=== PATIENT | male | born 1960 | race Caucasian/White ===

== ENCOUNTER 2021-10-27 00:26 | Day surgery (SDC) | payer OTHER, SELFPAY ==
[2021-10-10 13:41] VITALS: BMI 24.4
[2021-10-27 08:18] VITALS: BMI 24.6
[2021-10-27 08:19] VITALS: BP 110/68; PULSE 80; RESP 18; TEMP 36.1; O2SAT 100
[2021-10-27] MEDS: LACTATED RINGERS 1,000 ML 150 ML IV CONT (08:28)
--- NOTE | 2021-10-27 08:54 | WPDANESEPPF ---
Anes - Initial Pre Proc Eval Procedure: Operation Date: 10/27/21 09:30 Proposed Procedures p Colonoscopy - Cody Riley MD Date/Time: 10/27/21 08:54 Surgeon: Cody Riley MD Pre Op Diagnosis: Rectal bleeding Patient Data Age: 61 Gender: M Height: 1.8 m Weight: 80.2 kg Last Vital Signs Temp 97 F L 10/27/21 08:19 Pulse 80 10/27/21 08:19 Resp 18 10/27/21 08:19 BP 110/68 10/27/21 08:19 Pulse Ox 100 10/27/21 08:19 Allergies Allergy/AdvReac Type Severity Reaction Status Date / Time No Known Allergies Allergy Unverified 01/16/19 10:43 Patient hx anesthesia problems: none Family hx anesthesia problems: none Results Review: All pre-operative results and documents have been reviewed as part of the pre-operative evaluation. [facility] Social History Social History Smoking status: Never smoker Alcohol intake: current Drinks per week: 6 Substance use: never Substance use type: does not use Living arrangements: with family Spiritual care concerns: No Anes - Eval Final PreProcedure Day of Procedure 10/27/21 08:54 Patient weight: normal Heart: regular rate and rhythm Airway: Mallampati scale class II Neurological: alert and oriented Last oral intake: >/= 8 hours ASA classification: III Emergent: no Anesthetic plan: proceed Anesthesia type and monitoring: general GIVS and standard monitoring Results Review: All pre-operative results and documents have been reviewed as part of the pre-operative evaluation. Informed Consent: The patient's anesthetic plan and its attendant risks and benefits were discussed with the patient/family/POA. Questions were solicited and answers provided to the satisfaction of the patient/family/POA.
--- NOTE | 2021-10-27 08:58 | P.CONGI_ITS ---
Assessment and Plan Assessment and plan (1) Rectal bleeding: Code(s): K62.5 - Hemorrhage of anus and rectum Status: Acute Assessment and Plan: Patient complains of rectal bleeding. Plan is for high-fiber diet. Further recommendations will be given after a colonoscopy to assess more thoroughly. GI Consult Note Consult date/time: 10/27/21 08:58 HPI: Hari Sinclair is a 61 year old male Presents for colonoscopy. Patient reports bright red blood per rectum that is occurred on 1 or 2 episodes over last several months. He denies abdominal pain. His bowel habits tend to be regular. He has had no rectal pain. Family history is noncontributory. Patient reports having had a prior colonoscopy more than 10 years ago. Family history is noncontributory. Review of Systems Review of Systems: All systems reviewed & are unremarkable except as noted in HPI and below PMFSH Social History Social History Smoking status: Never smoker Alcohol intake: current Drinks per week: 6 Substance use: never Substance use type: does not use Living arrangements: with family Spiritual care concerns: No Meds Home Medications and Allergies Allergies Allergy/AdvReac Type Severity Reaction Status Date / Time No Known Allergies Allergy Unverified 01/16/19 10:43 Vital Signs Vital Signs - 24 hr 10/27/21 08:19 Temperature 97 F L Pulse Rate 80 Respiratory Rate 18 Blood Pressure 110/68 Pulse Oximetry 100 Exam Narrative: Physical exam reveals patient to be alert. Vital signs stable. HEENT exam is unremarkable. Patient is anicteric. Lungs are clear to auscultation and percussion. Heart is without murmur or extra sounds. Abdo chasity exam bowel sounds are present soft nontender with no organomegaly. Digital external rectal exam is normal.
[2021-10-27 10:08] VITALS: BP 94/63; PULSE 72; RESP 15; O2SAT 98
[2021-10-27 10:18] VITALS: BP 97/70; PULSE 81; RESP 19; O2SAT 100
[2021-10-27 10:28] VITALS: BP 100/73; PULSE 66; RESP 17; O2SAT 100
== END 2021-10-27 10:32 | disposition home or self-care (01) ==
PROVIDERS: PCP Internal Medicine; Visit Provider Internal Medicine Gastroenterology
PROC: 0DJD8ZZ Inspection of Lower Intestinal Tract, Via Natural or Artificial Opening Endoscopic (ICD-10-PCS; CPT 45378; principal; 2021-10-27 09:30)
DX: Z12.11 Encounter for screening for malignant neoplasm of colon (principal); D12.2 Benign neoplasm of ascending colon; K62.5 Hemorrhage of anus and rectum
CPT/HCPCS: 45385; 88305; J2704; J7120

== ENCOUNTER 2022-08-24 20:06 | Emergency (ER) | payer OTHER, SELFPAY ==
--- NOTE | ~2022-08-24 | CT_ITS ---
EXAMINATION: CTA neck DATE: 08/24/2022 21:09 INDICATION: Anterior neck injury, anterior neck pain TECHNIQUE: Computed tomography (CT) of the neck was performed with 100 mL Omnipaque-350 intravenous c ontrast. Automated exposure control and iterative reconstruction technique were employed. Exam dose: 652.75 mGy-cm total exam DLP. COMPARISON: None FINDINGS: No thoracic dissection of the included portion of the ascending and descending thoracic aor ta and aortic arch. No evidence of pulmonary embolism of the included lung hess. No hilar or medias tinal mass lesion or lymphadenopathy. No atherosclerotic significant stricture or obstruction or dissection of the great vessels or common, internal or external carotid arteries. Intracranial cerebral artery circulation is intact without ev idence of stricture, occlusion or apparent aneurysm. There is prominent tortuosity of both cervical i nternal carotid arteries. No cervical mass lesion or lymphadenopathy. Normal size and homogeneous enhancement of the thyroid gland. The parotid and submandibular glands ar e symmetric and unremarkable. The lung apices and included upper lung hess are clear. There are calcified left hilar and mediasti nal nodes, consistent with old granulomatous disease. Limited right mastoid air cell effusion. The mastoid air cells and paranasal sinuses are otherwise no rmally developed and aerated. Moderately severe to severe degenerative disc disease throughout the cervical spine and prominent deg enerative change of the apophyseal joints as well as uncovertebral joint spurring in the mid and lowe r cervical spine. IMPRESSION: No significant stricture, occlusion, atherosclerotic disease, dissection, aneurysm or oc clusion of the aortic arch, great vessels or cervical or intracranial carotid circulations No cervical mass lesion or lymphadenopathy Cervical spondylosis Reviewed, dictated and finalized at [facility]. Reviewed, dictated and finalized at [facility]. IMPRESSION: No significant stricture, occlusion, atherosclerotic disease, diss ection, aneurysm or occlusion of the aortic arch, great vessels or cervical or intracranial carotid circulations No cervical mass lesion or lymphadenopathy Cervical spondylosis
[2022-08-24 19:59] VITALS: O2SAT 98
[2022-08-24 20:04] VITALS: BP 106/82; PULSE 72; RESP 12; O2SAT 98
[2022-08-24 20:08] VITALS: BP 106/82; PULSE 69; RESP 14; TEMP 37; O2SAT 98
--- NOTE | 2022-08-24 20:11 | ED.GENADULT ---
HPI - General Adult General Chief complaint: Neck Pain/Injury Stated complaint: FALL WITH NECK PAIN History of Present Illness HPI narrative: 62-year-old male presenting to the emergency department for evaluation of anterior neck pain. 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 Patient states the antibiotic/direct just inferior of the hyoid but did track further and ultimately struck his chin. Patient denies any loss of consciousness. Patient denies any other pain or injury. Patient reports he does still have some pain with swallowing. Patient denies any previous surgical history of his neck. Related Data Allergies Allergy/AdvReac Type Severity Reaction Status Date / Time No Known Allergies Allergy Unverified 01/16/19 10:43 Review of Systems Review of Systems: CONSTITUTIONAL: Denies fever, chills, or sweats. EYES: Denies visual changes, redness, or discharge. ENT: Denies rhinorrhea, congestion, sore throat, or otalgia. CARDIOVASCULAR: Denies chest pain, palpitations, or edema. RESPIRATORY: Denies cough or dyspnea. GASTROINTESTINAL: Denies abdominal pain, nausea, vomiting, or diarrhea. GENITOURINARY: Denies dysuria or hematuria. SKIN: Denies rash or itching. MUSCULOSKELETAL: No posterior neck pain., See HPI NEUROLOGIC: Denies headache, numbness, or weakness. PMFSH Social History Social History Smoking status: Never smoker Alcohol intake: current Drinks per week: 6 Substance use: never Substance use type: does not use Spiritual care concerns: No Exam Narrative: APPEARANCE: Well appearing, no pain, no distress, well-nourished. HEAD: normocephalic, atraumatic. Neck: Anterior neck tenderness to palpation, no ecchymosis, no stridor. EYES: PERRLA/EOMI, conjunctivae clear. NOSE: Normal no drainage EARS:TMS clear with good light reflex. THROAT: Pharynx clear, no exudate. NECK: Supple. No adenopathy, no masses. RESPIRATORY: Airway patent, respirations nonlabored. Clear to auscultation bilaterally, no rales, rhonchi, wheezing. CARDIOVASCULAR: Regular rate and rhythm without murmurs rubs or gallops. ABDOMINAL: Soft, nontender, nondistended, normal bowel sounds MUSCULOSKELETAL: Moves all extremities. Strength/ROM intact, No edema, No calf tenderness. NEURO: Alert. Cranial nerves II through XII intact. Grossly intact SKIN: Warm, dry. Normal Color Course Course Emergency Course: CT scan showed no acute abnormality. Patient was obtained the results of his imaging. Patient was encouraged of close follow-up with his primary care physician was also educated on reasons to return to the emergency room Vital Signs Vital signs: Vital Signs Pulse Oximetry 98 08/24/22 19:59 Oxygen Delivery Room Air 08/24/22 19:59 Temperature 98.6 F 08/24/22 20:08 Pulse Rate 66 08/24/22 21:45 Respiratory Rate 14 08/24/22 21:45 Blood Pressure 108/77 08/24/22 21:45 Pulse Oximetry 98 08/24/22 21:45 Oxygen Delivery Room Air 08/24/22 20:08 Medical Decision Making Vital Signs Vital Signs: Vital Signs Pulse Oximetry 98 08/24/22 19:59 Oxygen Delivery Room Air 08/24/22 19:59 Temperature 98.6 F 08/24/22 20:08 Pulse Rate 66 08/24/22 21:45 Respiratory Rate 14 08/24/22 21:45 Blood Pressure 108/77 08/24/22 21:45 Pulse Oximetry 98 08/24/22 21:45 Oxygen Delivery Room Air 08/24/22 20:08 Lab Data Lab results reviewed: Yes I reviewed the patient's lab results. Result diagrams: 08/24/22 20:24 08/24/22 20:24 Labs: Lab Results 08/24/22 08/24/22 Range/Units 20:24 20:24 WBC 6.6 (4.5-10.0) K/mm3 RBC 4.24 L (4.6-6.20) M/mm3 Hgb 14.5 (14.0-18.0) g/dL Hct 42.2 (42.0-52.0) % MCV 99.5 (80-100) fl MCH 34.2 H (26-34) pg MCHC 34.4 (32-36) g/dl RDW 12.5 (11.5-14.5) % Plt Count 167 (150-375) k/mm3 MPV 9.
[2022-08-24 20:36] LABS: Basophils Percent Auto 0.6 % (0.2-1.2); Eosinophils Absolute Auto 0.6 K/mm3 (0-0.3); Eosinophils Percent Auto 8.8 % (0-4.4); Hematocrit 42.2 % (42.0-52.0); Hemoglobin 14.5 g/dL (14.0-18.0); Immature Granulocyte Absolute 0.02 K/mm3 (0.00-0.031); Immature Granulocyte Percent A 0.3 % (0-0.5); Lymphocytes Absolute Auto 1.69 K/mm3 (0.9-3.2); Lymphocytes Percent Auto 25.6 % (18.3-44.2); Mean Corpuscular HGB Conc 34.4 g/dl (32-36); Mean Corpuscular Hemoglobin 34.2 pg (26-34); Mean Corpuscular Volume 99.5 fl (80-100); Mean Platelet Volume 9.6 fl (7.4-10.4); Monocytes Absolute Auto 0.7 K/mm3 (0.1-0.6); Neutrophils Absolute Auto 3.6 K/mm3 (1.3-6.7); Neutrophils Percent Auto 53.7 % (45.5-73.1); Platelet Count Result 167 k/mm3 (150-375); Red Blood Count 4.24 M/mm3 (4.6-6.20); Red Cell Distribution Width 12.5 % (11.5-14.5); White Blood Count 6.6 K/mm3 (4.5-10.0)
[2022-08-24 20:46] LABS: Alanine Aminotransferase 48 U/L (6-50); Albumin Level 4.6 g/dL (3.5-5.1); Alkaline Phosphatase 40 U/L (38-126); Anion Gap 8 mmol/L (8-16); Aspartate Amino Transferase 43 U/L (17-59); Bilirubin,Total 0.7 mg/dL (0.2-1.3); Blood Urea Nitrogen 14 mg/dL (9-20); Calcium 9.3 mg/dL (8.4-10.2); Carbon Dioxide 26 mmol/L (22-30); Chloride 100 mmol/L (98-107); Estimated CRCL calculation 81 ml/min; Estimated Glomerular Filt Rate > 60; Glucose 90 mg/dL (65-110); Sodium 134 mmol/L (137-145)
[2022-08-24 21:08] VITALS: BP 107/73; PULSE 66; RESP 12; O2SAT 98
[2022-08-24 21:45] VITALS: BP 108/77; PULSE 66; RESP 14; O2SAT 98
== END 2022-08-24 22:08 | disposition home or self-care (01) ==
PROVIDERS: Emergency Provider Emergency Medicine
DX: S19.9XXA Unspecified injury of neck, initial encounter (principal); M47.812 Spondylosis without myelopathy or radiculopathy, cervical region; W01.198A Fall on same level from slipping, tripping and stumbling with subsequent striking against other object, initial encounter
CPT/HCPCS: 36415; 70498; 80053; 85025; 99284; Q9967

== ENCOUNTER 2024-03-11 10:11 | Outpatient (CLI) | payer OTHER, SELFPAY ==
--- NOTE | 2024-03-11 11:00 | NEURO_ITS ---
Impression: # Non-diabetic complains of right lower extremity numbness. # Early neuropathy. # Needle/EMG exam with neurogenic changes in EDB. # Clinical correlation recommended. Nerve Conduction Studies Anti Sensory Summary Table Stim Site NR Peak (ms) P-T Amp (?V) Site1 Site2 Delta-P (ms) Dist (cm) Bogdan (m/s) Right Saphenous Anti Sensory (Ant Med Mall) 14cm 3.1 11.9 14cm Ant Med Mall 3.1 0.0 Right Sup Fibular Anti Sensory (Ant Lat Mall) 14 cm 4.0 6.0 14 cm Ant Lat Mall 4.0 16.0 40 Right Sural Anti Sensory (Lat Mall) Calf 3.5 14.5 Calf Lat Mall 3.5 16.0 46 Motor Summary Table Stim Site NR Onset (ms) O-P Amp (mV) Site1 Site2 Delta-0 (ms) Dist (cm) Bogdan (m/s) Right Peroneal Motor (Vastus Med) Ankle 4.9 2.8 Popit Ankle 9.9 42.0 42 Popit 14.8 1.5 Right Tibial Motor (Abd Aquino Brev) Ankle 4.5 3.0 Knee Ankle 10.8 45.0 42 Knee 15.3 1.7 F Wave Studies NR F-Lat (ms) L-R F-Lat (ms) Right Peroneal (Mrkrs) (EDB) 56.88 Right Tibial (Mrkrs) (Abd Hallucis) 56.65 EMG Side Muscle Nerve Root Ins Act Fibs Amp Dur Recrt Comment Right AntTibialis Dp Br Fibular L4-5 Nml Nml Nml Nml Nml Right Gastroc Tibial S1-2 Nml Nml Nml Nml Nml Right Fibularis Long Sup Br Fibular L5-S1 Nml Nml Nml Nml Nml Right Flex Dig Long Tibial L5-S2 Nml Nml Nml Nml Nml Right Ext Dig Brev Dp Br Fibular L5, S1 Nml Nml Incr >12ms +2 Right QuadratusFem QuadFemoris L4-5, S1 Nml Nml Nml Nml Nml MTDD
== END 2024-03-11 10:12 | disposition home or self-care (01) ==
LOC: ANHNEURO 10:13
PROVIDERS: PCP Physician Assistant Medical; Visit Provider Physician Assistant Medical
DX: R20.0 Anesthesia of skin (principal)
CPT/HCPCS: 95886; 95909

== ENCOUNTER 2025-08-20 02:13 | Day surgery (SDC) | payer OTHER, SELFPAY ==
--- NOTE | 2025-08-10 13:02 | SUR.PREOP ---
Addendum entered by Mirna Garces RN 08/19/25 16:50: Called patient d/t the surgery date changing to 08/20/25 at 1300. Pt denies any changes with his medication or health history. Updated instructions on NPO status to [place] to guidelines. Pt denies having any further concerns at this time.-gladys Original Note: [facility] has started construction of its new state of the art ER which will open Spring 2026. With this, we anticipate parking may be a challenge for some our surgical patients and families. Parking spaces are limited but are available for all Surgical, obstetrics, and ER patients sharing this lot. If you arrive and find you are having a hard time finding a parking space, please note that we understand the challenges, please drive around the hospital and park near Hospital Entrance 1. When you enter this entrance, you can ask a volunteer to direct or take you back to the surgical waiting area to check in. We appreciate everyone?s understanding of these expected challenges while we build for your future. Report to the Outpatient Waiting Room, entrance under the green pavilion located off [address], at time __8AM___ on date _08/19/25__. Planned Procedure Time: _10am__.? Time changes happen often and if your time is changed the preop area will call you the afternoon before. - You and your visitor will be asked to self-screen and do not enter if you have any COVID symptoms. Please call surgeon if you need to reschedule. - A mask is optional within the hospital at this time. Patients may have clear liquids (water, carbonated beverages, clear teas, apple juice) until 3 hours prior to surgery with a maximum of 20 ounces. - No food from midnight until time of surgery and no smoking, or chewing tobacco (or any form of nicotine). No chewing gum, candy or mints. Take only the following medications with a SIP of water on the morning of surgery: __carvedilol and (nitroglycerine if needed)__ DO NOT STOP ANY OF YOUR OTHER PRESCRIPTION MEDICATIONS PRIOR TO SURGERY EXCEPT THE FOLLOWING Hold all vitamins and supplements for 3 days per anesthesiologist. Medications to discontinue per physician _Pt has an apt 08/11/25 and was directed to speak to the provider regarding the aspirin with history of cardiac stents and naproxen before surgery. Date to take last dose of vitamins__08/15/25_ Please no make-up, nail montserratian, hairspray, perfume, deodorant, or body powder the day of surgery.? No jewelry (including any body piercings) or valuables the day of surgery, leave them at home.? Please take a shower or bath the night before, or the morning of, surgery with an antibacterial soap.? Wear comfortable, loose fitting clothing.? - Jewelry must be removed prior to entering the operating room.? Rings and piercings that are not removed may be cut off. - The hospital will not accept responsibility for valuables.? - Please leave all valuables, including medications, at home the day of surgery. If you are going home after surgery, a licensed milk pickup driver must drive you home.? - NO public transportation without another adult if you receive anesthesia. - We recommend that an adult stay with you for 24 hours following discharge. - We also recommend that you do not drive, make important decision, drink alcoholic beverages, or take any drugs that were not prescribed by your health care provider for at least 24 hours after your discharge time. Follow any additional instructions given to you from your surgeon. Telephone instructions given to __Lewis___and asked if any additional questions and then verbalized understanding. Patient advised to call surgeon office or pre surgery nurse liaison [phone] if any additional questions.
[2025-08-10 13:10] VITALS: BMI 24.0
--- NOTE | 2025-08-13 07:18 | PM.IMHP ---
H&P: HPI History of Present Illness Date/Time: 08/13/25 07:18 Chief Complaint: Patient has knee and knee pain right. He has mechanical catching and locking and has failed conservative treatment. He continues to be painful when he twists or turns the knee catches. He would like to consider surgical intervention. Review of Systems Musculoskeletal: Musculoskeletal: Reports arthralgias, Reports joint swelling and Reports stiffness Neurologic: Reports abnormal gait [facility] Past Medical History Medical History Prostate cancer History of [place] (myocardial infarction) CAD (coronary artery disease) [place] (seborrheic keratosis) Platt angioma [place] (actinic keratosis) Surgical History Surgical History History of right knee surgery History of heart surgery History of prostatectomy Family History Family History Mother Pancreatic cancer Hypertension Father Hypertension Heart disease Sibling Cerebrovascular accident Hypertension Social History Social History (Updated 07/21/25 @ 10:38 by Vanesa Car CMA) Smoking status: Never smoker Alcohol intake: current Drinks per week: 5 Substance use: never Substance use type: does not use Do You Feel Safe in your Home?: Yes Lack of Transportation: No Lack of Food: Never True Current Housing: I Have Housing Concerned About Future Housing: No Difficulty Paying Gas/Electric Bills: No Difficulty Paying for Meds: No Currently Unemployed: No Education: High School Diploma/GED Difficulty w/ Childcare or Family Care: No Living arrangements: with family Occupation/Education: occupation Additional occupation/education comments: [employer] Gender identity (if verbalized by the patient): Male Spiritual care concerns: No Meds Home Medications and Allergies Home Medications ?Medication ?Instructions ?Recorded ?Confirmed ?Type aspirin 81 mg tablet,delayed 81 mg PO DAILY 06/20/23 08/10/25 History release (Adult Aspirin Regimen) carvedilol 12.5 mg tablet 12.5 mg PO Q12H 06/20/23 07/21/25 History ezetimibe 10 mg tablet 10 mg PO DAILY #90 tabs 06/20/23 08/10/25 Rx nitroglycerin 0.4 mg sublingual 0.4 mg sublingual Q5M PRN chest 04/01/24 08/10/25 Rx tablet pain #30 tabs naproxen 500 mg tablet (Naprosyn) 500 mg PO BID 08/10/25 08/10/25 History rosuvastatin 40 mg tablet 40 mg PO HS 08/10/25 08/10/25 History tadalafil 5 mg tablet 5 mg PO DAILY PRN sexual activity 08/10/25 08/10/25 History vitamin B complex 1 tablet PO DAILY 08/10/25 08/10/25 History cholecalciferol (vitamin D3) 25 50 mcg PO DAILY 08/11/25 History mcg (1,000 unit) tablet lisinopril 10 mg tablet 5 mg PO BID 08/11/25 History Allergies Allergy/AdvReac Type Severity Reaction Status Date / Time No Known Allergies Allergy Verified 08/11/25 15:34 Exam Narrative: Patient has tenderness in and pain right knee both medially and laterally. He has catching and locking mechanical type symptoms. He walks with a limp. Neurologically he is intact. He has pain with any manipulation of his knee. Eyes: General: appearance normal, both eyes and all related structures Neck: Neck: supple Resp: Effort & Inspection: normal respiratory effort Cardio: Rate: regular rate Rhythm: regular rhythm Knee X-Ray 06/20/23 Shoulder X-Ray 06/20/23 Lumbar Spine X-Ray 02/01/24 Assessment and Plan Assessment and plan (1) Acute lateral meniscus tear of right knee: Code(s): S83.281A - Other tear of lateral meniscus, current injury, right knee, initial encounter Status: Acute Assessment and Plan: Patient has medial and lateral tears meniscal tears of the right knee. He has failed conservative treatment like to consider surgical intervention. I discussed the risks, benefits, limitations, and alternatives with the patient in detail he understands and agrees would like to proceed. Will proceed per his request with arthroscopy right knee partial medial and lateral meniscectomies proceed as indicated. (2) Acute medial meniscus tear of right knee: Code(s): S83.241A - Other tear of medial meniscus, current injury, right knee, initial encounter Status: Acute
--- OUTSIDE RECORDS SUMMARY | 2025-08-19 02:03 | XMS_ITS | Encounter Summary ---
Author Organization [facility] Address [address] [place] [id number] Care Team Providers Care Feather Maker Name Role Phone Luis Beck MD Primary Care Provider [phone] Silvia Gardner MD Unavailable [phone] Eugenie Wolfe Primary Care Provider [phone] Encounter Details Date Type Department Care Team (Late st Contact Info) Description 03/29/2019 Abstract [facility] CONVERSION [address] [place] [address] , Generic ConversionMD Social History Tobacco Use Types Packs/Day Years Used Date Smoking Tobacco: Never Smokeless Tobacco: Never Alcohol Use Standard Drinks/Week Comments Yes 0 (1 standard drink = 0.6 oz pur e alcohol) Occasionally Sex and Gender Information Value Date Recorded Sex Assigned at Male 11/26/2024 11:56 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, [address] [place], [place] [id number] Silvia Gardner MD [facility]. [address] [place], [place] [id number] documented as of this encounter Visit Diagnoses Not on filedocumented in this encounter Additional Health Concerns Infection Onset Date Last Indicated Resolved Time COVID-19 Rule Out 10/11/2023 10/11/2023 10/11/2023 1:58 PM RENTAL SALES AGENT COVID-19 Rule Out 10/11/2023 10/11/2023 10/11/2023 4:51 PM RENTAL SALES AGENT documented as of this encounter Care Teams Feather Maker Relationship Specialty Start Date End Date Luis Beck MD PCP - General INTERNAL MEDICINE 03/22/16 10/10/23 Eugenie Wolfe PA [address] [place] [id number] PCP - General PHYSICIAN REHABILITATION SERVICES COUNSELOR 10/11/23 Silvia Gardner MD [id number] [place] [address] [place] [employer] Systems Administrator CARDIOVASCULAR DISEASE 03/22/16 documented as of this encounter
--- OUTSIDE RECORDS SUMMARY | 2025-08-19 02:03 | XMS_ITS | Clinical Summary ---
Author Organization [facility] Address [facility] [place] [address] Care Team Providers Care Event Marketing Assistant Name Role Phone Silvia Gardner MD Unavailable [phone] Eugenie Wolfe Primary Care Provider [phone] Allergies No known active allergies Medications aspirin EC (ASPIRIN) 81 MG EC tablet Take 1 tablet (81 mg total) by mouth daily. 4 Active B Complex Vitamins (B-COMPLEX/B-12 ) Tab Take 1 tablet by mouth daily. 4 Active Cholecalciferol (VITAMIN D3) 25 MCG (1000 UT) Cap Take 1 tablet by mouth daily. 4 Active tadalafil (CIALIS) 5 MG tablet Take 1 tablet (5 mg total) by mouth daily. 4 Active nitroglycerin (NITROSTAT) 0.[address] 1 tablet (0.4 mg total) under the tongue every 5 (five) minutes as needed (If taking 3rd dose, contact 911.). 25 tablet 1 5 Active ezetimibe (ZETIA) 10 MG tablet Take 1 tablet by mouth once daily 90 tablet 2 5 Active rosuvastatin (CRESTOR) 40 MG tablet TAKE 1 TABLET BY MOUTH NIGHTLY AT BEDTIME 90 tablet 3 5 Active carvedilol (COREG) 12.5 MG tablet TAKE 1 TABLET BY MOUTH TWICE DAILY WITH MEALS 180 tablet 1 5 Active lisinopril (PRINIVIL) 10 MG tablet Take 0.5 tablets (5 mg total) by mouth 2 (two) times daily. NEW DOSE 07/22/25 90 tablet Active lisinopril (PRINIVIL) 10 MG tablet Take 1 tablet by mouth twice daily 180 tablet 3 5 07/22/20 Discontinu ed(Reorder ) Active Problems Problem Noted Date Diagnosed Date Sciatica of right side 04/22/2024 Assessment & Plan (04/22/2024 4:33 PM CDT): Recommendation at this time, we went over the risks and benefits as well as the alternatives. He could try a two-week holiday on a statin drug to see if that might help. Certainly could try supplements such as alpha lipoic acid, complex vitamin B, vitamin D3, and CoQ10. Those may help as well. If he wants further evaluation, might consider an MRI to the lumbar spine and/or physical therapy. All questions are answered. We will see him back once he discusses it with his . Neuropathy 04/22/2024 Essential hypertension 04/08/2023 LV (left ventricular) mural thrombus following M I 11/10/2016 Coronary artery disease invo lving nez perce coronary artery of nez perce heart without angina pectoris Ischemic cardiomyopathy Pure hypercholesterolemia Encounters Date Type Department Care Team Description 08/18/2025 Telephone [facility], [address] [address] Silvia Gardner MD Surgical Clearance 07/22/2025 Telephone [facility], [address] [address] Silvia Gardner MD Medication (LISINOPRIL) 07/17/2025 Telephone [facility], [address] [place] [address] Myranda Rodriguez PA-C Information ([facility]) 07/14/2025 Orders Only [facility], [place] [address] [place], [place] [id number] Brittany Wray RN 07/14/[address] [address] Brittany Wray RN Concerns 07/13/2025 8:40 AM CDT - 07/13/2025 11:59 PM CDT Hospital Encounter [facility] [place] [address] [place] [address] Karla Arreguin MD Discharge Disposition: Home or Self Care (Routine Discharge) 07/13/[address] [address] Scanned, Doc Pccl 07/13/2025 Travel 06/03/2025 4:10 AM CDT - 06/03/2025 6:06 AM CDT Emergency [facility] [place] [address] Valentino Junior MD Knee Pain Discharge Disposition: Home or Self Care (Routine Discharge) 06/03/2025 Telephone [facility] - [address] [address] Elías Mckinnon MD Appointment Request 06/03/2025 Travel 05/28/2025 9:45 AM CDT - 05/28/2025 11:59 PM CDT Hospital Encounter [facility] [address] [place] [address] Lindy Martínez, [facility] Discharge Disposition: Home or Self Care (Routine Discharge) 05/28/2025 Travel from Last 3 Months Immunizations Immunization Administration Dates Next Due Fluzone 6 Months+ Quad (0.5 mL Prefilled Syringe ) 06/29/2020 Family History Medical History Relation Comments Heart Attack Father in his 60s Cancer Maternal Aunt Cancer Mother Pancreas Relation Status Comments Father Maternal Aunt Mother Social History Tobacco Use Types Packs/Day Years Used Date Smoking Tobacco: Never Passive Smoke Exposure: Never Smokeless Tobacco: Never Tobacco Cessation:Counseling Given: No Alcohol Use Standard Drinks/Week Comments Yes 0 (1 standard drink = 0.6 oz pur e alcohol) Occasionally PHQ-2 Answer Date Recorded Patient Health Questionnaire-2 Score 0 10/11/2023 Sex and Gender Information Value Date Recorded Sex Assigned at Male 11/26/2024 11:56 AM PHYSICS TEACHER Legal Sex Male 11:06 PM CDT Gender Identity Not on file Sexual Orientation Not on file 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 Not on file Not on file Last Filed Vital Signs Vital Sign Reading Time Taken Comments Blood Pressure 96/59 06/03/2025 6:00 AM CDT Pulse 68 06/03/2025 4:06 AM CDT Temperature 36.6 C (97.9 F) 06/03/2025 4:06 AM CDT Respiratory Rate 16 06/03/2025 4:06 AM CDT Oxygen Saturation 97% 06/03/2025 6:00 AM CDT Inhaled Oxygen Concentration - - Weight 81.1 kg (178 lb 12.7 oz) 06/03/2025 4:06 AM CDT Height 180.3 cm (5' 11) 06/03/2025 4:06 AM CDT Body Mass Index 24.94 06/03/2025 4:06 AM CDT Plan of Treatment Upcoming Encounters Date Type Department Care Team (Late st Contact Info) Description 08/26/2025 11:30 AM PHYSICS TEACHER Office Visit [facility] [address] [place], [place] [id number] Silvia Gardner MD [facility]. [facility] [address] [place] [address] Health Maintenance Due Date Last Done Comments Colorectal Cancer Screening Colonoscopy (10 Years) 1961 Annual Physical 01/20/1964 Hepatitis C 1979 Pneumococcal Vaccine: 50+ Years (1 of 2 - PCV) 01/20/1980 Zoster Vaccines (1 of 2) 2011 RSV Immunization or 60+ Years (1 - Risk 60-74 years 1-dose series) 2021 PHQ-2 (Physician [place]) 10/22/2024 10/11/2023 COVID-19 Vaccine (4 - 2024-2 6 season) 2025 11/02/2021, 01/21/2021, 12/31/2020 Influenza Adult (#1) 2025 09/19/2022, 06/29/2020 DTaP, Tdap and Td Vaccines ( 2 - Td or Tdap) 12/02/2032 12/02/2022 Hepatitis A Vaccines Aged Out No long er eligible based on patient's age to complete this topic Meningococcal B Vaccine Aged Out No l onger eligible based on patient's age to complete this topic Meningococcal Vaccine Aged Out No shay azalea eligible based on patient's age to complete this topic RSV Immunizations Under 20 Months Aged Out No longer eligible b ased on patient's age to complete this topic Procedures Procedure Name Priority Date/Time Associated Diagnosis Comments MRI KNEE RT WO CON Routine 07/13/2025 9: 23 AM CDT Other tear of medial meniscus, current injury, right knee, initial encounter Chondromalacia, right knee ECG GENERIC (SCAN ORDER) Routine 07/13/2025 XR KNEE RT 3V Routine 05/28/2025 10:05 AM CDT Right knee pain from Last 3 Months Results * MRI KNEE RT WO CON (07/13/2025 9:23 AM CDT) Anatomical Region Laterality Modality Knee Magnetic Resonan ce 07/15/2025 10:2 5 AM CDT Impressions 07/15/2025 10:50 AM CDT IMPRESSION: Tears in the medial lateral menisci. Joint effusion. Tiny popliteal cyst. Probable previous partial meniscectomy body medial meniscus. Ordered By: KARLA ARREGUIN Interpreted By: Filipe Perez MD, 07/15/2025 10:25 AM Narrative 07/15/2025 10:50 AM CDT [facility] [address] [facility] [place] [address] 07/13/2025, 9:18 AM. HISTORY: Chondromalacia. Medial, lateral and posterior knee pain. History of meniscal surgery in 1999. EXAM: MRI right knee without contrast. MR imaging was performed in the axial, the sagittal and coronal planes utilizing T1, proton density, fat sat proton density and T2 sequence imaging. No comparison. Correlation to radiographic imaging 05/10/2025. FINDINGS: Motion artifact degrades image detail. Horizontal tear to inferior surface body and posterior horn medial meniscus. Attenuation in the size of the body the medial meniscus could be secondary to previous partial meniscectomy. Anterior horn of medial meniscus appears intact. Horizontal tear to inferior surface posterior horn lateral meniscus. Anterior horn of the lateral meniscus is intact. No evidence of tear or disruption in the anterior or posterior cruciate ligament is normal in the medial collateral ligament, distal quadriceps tendon nor the patellar tendons. A joint effusion is present. Small popliteal cyst on the medial surface of the medial head of gastrocnemius. No marrow replacement or gross bone destruction distal femur nor proximal tibia. No periarticular soft tissue mass. Procedure Note Filipe Perez MD - 07/15/2025 [facility] [address] [facility] [place] [address] 07/13/2025, 9:18 AM. HISTORY: Chondromalacia. Medial, lateral and posterior knee pain. Historyof meniscal surgery in 1999. EXAM: MRI right knee without contrast. MR imaging was performed in the axial, the sagittal and coronal planesutilizing T1, proton density, fat sat proton density and T2 sequenceimaging. No comparison. Correlation to radiographic imaging 05/10/2025. FINDINGS: Motion artifact degrades image detail. Horizontal tear to inferior surface body and posterior horn medialmeniscus. Attenuation in the size of the body the medial meniscus could besecondary to previous partial meniscectomy. Anterior horn of medialmeniscus appears intact. Horizontal tear to inferior surface posteriorhorn lateral meniscus. Anterior horn of the lateral meniscus is intact. Noevidence of tear or disruption in the anterior or posterior cruciateligament is normal in the medial collateral ligament, distal quadricepstendon nor the patellar tendons. A joint effusion is present. Smallpopliteal cyst on the medial surface of the medial head of gastrocnemius.No marrow replacement or gross bone destruction distal femur nor proximaltibia. No periarticular soft tissue mass. IMPRESSION: Tears in the medial lateral menisci. Joint effusion. Tiny popliteal cyst.Probable previous partial meniscectomy body medial meniscus. Ordered By: KARLA ARREGUIN Interpreted By: Filipe Perez MD, 07/15/2025 10:25 AM us Karla Arreguin MD MRI Final Result * ECG (07/13/2025) us Doc Pccl Scanned SCANNING Final Result [facility] ON[facility] * XR KNEE RT 3V (05/28/2025 10:05 AM CDT) Anatomical Region Laterality Modality Knee Radiographic Altagracia ging 05/28/2025 10:3 9 AM CDT Impressions 05/28/2025 2:51 PM CDT IMPRESSION: 1. No acute osseous or articular abnormalities. 2. Minimal degenerative arthropathy noted. 3. Mild joint effusion Dictated By: Jeanette Domínguez MD on 05/28/2025 10:39 AM Referred By: LINDY MARTÍNEZ Interpreted By: Jeanette Domínguez MD, 05/28/2025 10:39 AM Narrative 05/28/2025 2:51 PM CDT [facility] [address] [place] [address] [facility] [address] [place] [address] XR KNEE RT 3V: 05/28/2025 9:51 AM CLINICAL INDICATION: Medial knee pain for 2 weeks COMPARISON: None TECHNIQUE: AP, lateral, oblique views of the right knee FINDINGS: No fracture or dislocation is identified. Mild joint effusion. The tibial plateau is intact. Osteophyte production on the medial side of the tibia, patella and femur. Procedure Note Ant Presley MD - 05/28/2025 [facility] [address] [place] [address] [facility] [address] [place] [address] XR KNEE RT 3V: 05/28/2025 9:51 AM CLINICAL INDICATION: Medial knee pain for 2 weeks COMPARISON: None TECHNIQUE: AP, lateral, oblique views of the right knee FINDINGS: No fracture or dislocation is identified. Mild joint effusion. The tibialplateau is intact. Osteophyte production on the medial side of the tibia,patella and femur. IMPRESSION: 1. No acute osseous or articular abnormalities. 2. Minimal degenerative arthropathy noted. 3. Mild joint effusion Dictated By: Jeanette Domínguez MD on 05/28/2025 10:39 AM Referred By: LINDY MARTÍNEZ Interpreted By: Jeanette Domínguez MD, 05/28/2025 10:39 AM Lindy Martínez DIETETIC TECHNICIAN-BC GENERAL IMAGING Final Re sult from Last 3 Months Insurance [facility] [place] [id number] Care Teams Event Marketing Assistant Relationship Specialty Start Date End Date Eugenie Wolfe PA [address] [place] [id number] PCP - General PHYSICIAN WET CHAR CONVEYOR TENDER 10/11/23 Silvia Gardner MD [facility] [address] [place] [address] [employer] [employer] Rider CARDIOVASCULAR DISEASE 03/22/16
--- OUTSIDE RECORDS SUMMARY | 2025-08-19 02:03 | XMS_ITS | Encounter Summary ---
Author Organization [facility] Address [address] [place] [id number] Care Team Providers Care Intranet Specialist Name Role Phone Luis Beck MD Primary Care Provider Silvia Gardner MD Unavailable [phone] Eugenie Wolfe Primary Care Provider [phone] Encounter Details Date Type Department Care Team (Late Contact Info) Description 06/29/2020 Abstract [facility], [facility] [address] [place] [address] Jose Jean MA Social History Tobacco Use Types Packs/Day Years Used Date Smoking Tobacco: Never Smokeless Tobacco: Never Alcohol Use Standard Drinks/Week Comments Yes 0 (1 standard drink = 0.6 oz pur e alcohol) Occasionally Sex and Gender Information Value Date Recorded Sex Assigned at Male 11/26/2024 11:56 AM FISH FARM MANAGER Legal Sex Male 11:06 PM CDT Gender Identity Not on file Sexual Orientation Not on file 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 No / Unsure 06/18/2020 1:18 PM CDT documented as of this encounter Plan of Treatment Upcoming Encounters Date Type Department Care Team (Late st Contact Info) Description 08/26/2025 11:30 AM FISH FARM MANAGER [facility] [address] [place] [address] Silvia Gardner MD [facility]. [facility] [address] [place], [place] [id number] documented as of this encounter Procedures Procedure Name Priority Date/Time Associated Diagnosis Comments CMP (ABSTRACTED LAB) Routine 02/05/2025 LIPID PANEL Routine 02/05/2025 COMPREHENSIVE METABOLIC PANEL Routine 03/19/2024 CBC, MANUAL DIFF Routine 03/19/2024 LIPID PANEL Routine 06/27/2023 COMPREHENSIVE METABOLIC PANEL Routine 06/20/2023 COMPREHENSIVE METABOLIC PANEL Routine 08/24/2022 CBC, MANUAL DIFF Routine 08/24/2022 BASIC METABOLIC PANEL Routine 04/06/2022 LIPID PANEL Routine 04/06/2022 BASIC METABOLIC PANEL Routine 12/28/2020 LIPID PANEL Routine 12/28/2020 BASIC METABOLIC PANEL Routine 07/28/2020 BASIC METABOLIC PANEL Routine 06/25/2020 BASIC METABOLIC PANEL Routine 06/25/2020 LIPID PANEL Routine 06/25/2020 LIPID PANEL Routine 06/25/2020 documented in this encounter Results * LIPID PANEL (02/05/2025) CHOLESTEROL 100 HDL 56 TRIGLYCERIDES 46 NON HDL CHOLESTEROL 44 LDL (CALCULATED) 31 02/05/2025 Default History Genericprovider LABORATORY Final Result * (ABNORMAL) CMP (ABSTRACTED LAB) (02/05/2025) SODIUM S/P/B 133 POTASSIUM S/P/B 4.5 CHLORIDE S/P/B 99 CO2 28 BUN 19 CREATININE S/P/B 0.78 0.7 - 1.3 EGFR NON-AFR. AMER. 100(A) <=90 CALCIUM S/P/B 9.3 GLUCOSE 89 mg/dL TOTAL PROTEIN S/P/B 6.5 ALBUMIN S/P/B 4.5 3.5 - 5.0 AST 27 ALT 29 ALKALINE PHOSPHATASE S/P/B 33 BILIRUBIN TOTAL S/P/B 1.2 GLOBULIN 2.0 02/05/2025 [facility] History Genericprovider LAB-OUTSIDE/ABST RACTED Final Result * COMPREHENSIVE METABOLIC PANEL (03/19/2024) SODIUM S/P/B 135 GLUCOSE 93 mg/dL BUN 17 CREATININE S/P/B 0.80 0.7 - 1.3 CALCIUM S/P/B 9.4 POTASSIUM S/P/B 4.6 CHLORIDE S/P/B 102 GFR ESTIMATE 99 Default History Genericprovider LABORATORY Edited Result - Final * CBC, MANUAL DIFF (03/19/2024) Pathologist [facility] WBC 6.1 HGB 13.9 HCT 41.6 PLT 175 Default History Genericprovider LABORATORY Edited Result - Final * LIPID PANEL (06/27/2023) CHOLESTEROL 103 TRIGLYCERIDES 89 HDL 48 LDL (CALCULATED) 38 Default History Genericprovider LABORATORY Final Result * (ABNORMAL) COMPREHENSIVE METABOLIC PANEL (06/20/2023) SODIUM S/P/B 137 POTASSIUM S/P/B 4.4 CO2 29 CHLORIDE S/P/B 105 GLUCOSE 81 mg/dL CALCIUM S/P/B 9.3 BUN 14 CREATININE S/P/B 0.81 0.7 - 1.3 EGFR NON-AFR. AMER. 100(A) <=90 ALKALINE PHOSPHATASE S/P/B 31 ALT 22 AST 21 BILIRUBIN TOTAL S/P/B 0.8 ALBUMIN S/P/B 4.2 3.5 - 5.0 TOTAL PROTEIN S/P/B 6.1 GLOBULIN 1.9 06/20/2023 Default History Genericprovider LABORATORY Final Result * COMPREHENSIVE METABOLIC PANEL (08/24/2022) SODIUM S/P/B 134 GLUCOSE 90 mg/dL AST 43 BUN 14 CREATININE S/P/B 0.90 0.7 - 1.3 CALCIUM S/P/B 9.3 POTASSIUM S/P/B 4.0 CHLORIDE S/P/B 100 ALT 48 GFR ESTIMATE >60 Narrative Resulting Agency Comment [facility] History Genericprovider LABORATORY Edited Result - Final * CBC, MANUAL DIFF (08/24/2022) WBC 6.6 HGB 14.5 HCT 42.2 PLT 167 Narrative Resulting Agency Comment [facility] History Genericprovider LABORATORY Edited Result - Final * (ABNORMAL) BASIC METABOLIC PANEL (04/06/2022) SODIUM S/P/B 135 POTASSIUM S/P/B 4.4 CO2 27 CHLORIDE S/P/B 102 GLUCOSE 85 mg/dL CALCIUM S/P/B 9.3 BUN 16 CREATININE S/P/B 0.95 0.7 - 1.3 EGFR AFR. AMER. 100(A) <=90 EGFR NON-AFR. AMER. 86 <=90 04/06/2022 Doc [facility] LABORATORY Final Result * LIPID PANEL (04/06/2022) CHOLESTEROL 100 HDL 47 TRIGLYCERIDES 58 NON HDL CHOLESTEROL 53 LDL (CALCULATED) 40 04/06/2022 [email or web address] Abstract LABORATORY Final Result * (ABNORMAL) BASIC METABOLIC PANEL (12/28/2020) SODIUM S/P/B 138 POTASSIUM S/P/B 4.7 CO2 29 CHLORIDE S/P/B 103 GLUCOSE 95 mg/dL CALCIUM S/P/B 10.0 BUN 16 CREATININE S/P/B 0.89 0.7 - 1.3 EGFR AFR. AMER. 108(A) <=90 EGFR NON-AFR. AMER. 94(A) <=90 12/28/2020 [email or web address] LABORATORY Final Result * LIPID PANEL (12/28/2020) CHOLESTEROL 134 HDL 52 TRIGLYCERIDES 61 NON HDL CHOLESTEROL 82 LDL (CALCULATED) 68 12/28/2020 [email or web address] LABORATORY Edited Resul t - Final * (ABNORMAL) BASIC METABOLIC PANEL (07/28/2020) SODIUM S/P/B 134 POTASSIUM S/P/B 4.4 CO2 25 CHLORIDE S/P/B 101 GLUCOSE 85 mg/dL CALCIUM S/P/B 9.4 BUN 16 CREATININE S/P/B 0.88 0.7 - 1.3 EGFR AFR. AMER. 109(A) <=90 EGFR NON-AFR. AMER. 94(A) <=90 07/28/2020 [email or web address] [facility] LABORATORY Final Result * (ABNORMAL) BASIC METABOLIC PANEL (06/25/2020) SODIUM S/P/B 137 POTASSIUM S/P/B 4.2 CO2 29 CHLORIDE S/P/B 102 GLUCOSE 96 mg/dL CALCIUM S/P/B 9.5 BUN 18 CREATININE S/P/B 1.01 0.7 - 1.3 EGFR AFR. AMER. 94(A) <=90 EGFR NON-AFR. AMER. 81 <=90 06/25/2020 us Doc [facility] LABORATORY Final Result * LIPID PANEL (06/25/2020) CHOLESTEROL 131 HDL 53 TRIGLYCERIDES 55 NON HDL CHOLESTEROL 78 LDL (CALCULATED) 64 06/25/2020 us Doc [facility] LABORATORY Edited Resul t - Final * (ABNORMAL) BASIC METABOLIC PANEL (06/25/2020) SODIUM S/P/B 137 POTASSIUM S/P/B 4.2 CO2 29 CHLORIDE S/P/B 102 GLUCOSE 96 mg/dL CALCIUM S/P/B 9.5 BUN 18 CREATININE S/P/B 1.01 0.7 - 1.3 EGFR AFR. AMER. 94(A) <=90 EGFR NON-AFR. AMER. 81 <=90 06/25/2020 us Doc [facility] LABORATORY Final Result * LIPID PANEL (06/25/2020) CHOLESTEROL 131 <200 HDL 53 > or = 40 TRIGLYCERIDES 55 <150 NON HDL CHOLESTEROL 78 <130 LDL (CALCULATED) 64 <100 06/25/2020 us Doc [facility] LABORATORY Final Result documented in this encounter Visit Diagnoses Not on filedocumented in this encounter Additional Health Concerns Infection Onset Date Last Indicated Resolved Time COVID-19 Rule Out 10/11/2023 10/11/2023 10/11/2023 1:58 PM FISH FARM MANAGER COVID-19 Rule Out 10/11/2023 10/11/2023 10/11/2023 4:51 PM FISH FARM MANAGER documented as of this encounter Care Teams Intranet Specialist Relationship Specialty Start Date End Date Luis Beck MD PCP - General INTERNAL MEDICINE 03/22/16 10/10/23 Eugenie Wolfe PA [address] [place] [address] PCP - General PHYSICIAN JUNIOR DATABASE ADMINISTRATOR 10/11/23 Silvia Gardner MD [id number] [place] [address] Homer Inside Sales Advisor CARDIOVASCULAR DISEASE 03/22/16 documented as of this encounter
--- OUTSIDE RECORDS SUMMARY | 2025-08-19 02:03 | XMS_ITS | Encounter Summary ---
Author Organization [facility] Address [address] [place] [address] Care Team Providers Care Central Sterile Technician Name Role Phone Luis Beck MD Primary Care Provider [phone] Silvia Gardner MD Unavailable [phone] Eugenie Wolfe Primary Care Provider [phone] Encounter Details Date Type Department Care Team (Late st Contact Info) Description 03/20/2019 Abstract [facility] at [facility], [facility] [address] [place] [address] Jose Jean MA Social History Tobacco Use Types Packs/Day Years Used Date Smoking Tobacco: Never Smokeless Tobacco: Never Alcohol Use Standard Drinks/Week Comments Yes 0 (1 standard drink = 0.6 oz pur e alcohol) Occasionally Sex and Gender Information Value Date Recorded Sex Assigned at Male 11/26/2024 11:56 AM RESPIRATORY THERAPIST Legal Sex Male 11:06 PM CDT Gender Identity Not on file Sexual Orientation Not on file 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 [address] [place] [address] documented as of this encounter Procedures Procedure Name Priority Date/Time Associated Diagnosis Comments PRO-BRAIN NATRIURETIC PEPTIDE Routine 01/16/2019 PROTIME (OUTSIDE LAB) Routine 01/16/2019 CBC (OUTSIDE LAB) Routine 01/16/2019 COMPREHENSIVE METABOLIC PANEL Routine 01/16/2019 CBC (OUTSIDE LAB) Routine 10/09/2018 COMPREHENSIVE METABOLIC PANEL Routine 10/09/2018 LIPID PANEL Routine 10/09/2018 documented in this encounter Results * PROTIME (OUTSIDE LAB) (01/16/2019) PROTIME 19.4 INR 1.6 01/16/2019 [facility] Abstract LAB-OUTSIDE/ABSTRACTED Final Result * PRO-BRAIN NATRIURETIC PEPTIDE (01/16/2019) Pathologist [facility] PRO-BRAIN NATRIURETIC PEPTIDE 166 01/16/2019 [facility] Abstract LABORATORY Final Result * CBC (OUTSIDE LAB) (01/16/2019) Pathologist [facility] WBC 6.8 HGB 14.6 HCT 43.3 PLT 157 01/16/2019 [facility] Abstract LAB-OUTSIDE/ABSTRACTED Edite d Result - Final * COMPREHENSIVE METABOLIC PANEL (01/16/2019) Pathologist [facility] SODIUM S/P/B 136 POTASSIUM S/P/B 4.4 CO2 30 CHLORIDE S/P/B 100 GLUCOSE 82 mg/dL CALCIUM S/P/B 9.2 BUN 20 CREATININE S/P/B 0.90 0.7 - 1.3 EGFR NON-AFR. AMER. >60 <=90 ALKALINE PHOSPHATASE S/P/B 37 ALT 35 AST 31 BILIRUBIN TOTAL S/P/B 0.6 ALBUMIN S/P/B 4.3 3.5 - 5.0 TOTAL PROTEIN S/P/B 7.0 01/16/2019 [facility] Abstract LABORATORY Edited Resul t - Final * (ABNORMAL) COMPREHENSIVE METABOLIC PANEL (10/09/2018) SODIUM S/P/B 138 POTASSIUM S/P/B 4.3 CO2 31 CHLORIDE S/P/B 103 GLUCOSE 91 mg/dL CALCIUM S/P/B 9.4 BUN 11 CREATININE S/P/B 0.84 0.7 - 1.3 EGFR AFR. AMER. 113 EGFR NON-AFR. AMER. 97(A) <=90 ALKALINE PHOSPHATASE S/P/B 36 ALT 21 AST 23 BILIRUBIN TOTAL S/P/B 0.7 ALBUMIN S/P/B 4.2 3.5 - 5.0 TOTAL PROTEIN S/P/B 6.1 GLOBULIN 1.9 10/09/2018 [facility] Abstract LABORATORY Final Result * LIPID PANEL (10/09/2018) CHOLESTEROL 146 HDL 51 TRIGLYCERIDES 85 NON HDL CHOLESTEROL 95 LDL (CALCULATED) 78 10/09/2018 [facility] Abstract LABORATORY Final Result * CBC (OUTSIDE LAB) (10/09/2018) WBC 5.1 HGB 14.9 HCT 42.9 PLT 159 10/09/2018 [facility] Abstract LAB-OUTSIDE/ABSTRACTED Final Result documented in this encounter Visit Diagnoses Not on filedocumented in this encounter Additional Health Concerns Infection Onset Date Last Indicated Resolved Time COVID-19 Rule Out 10/11/2023 10/11/202310/11/2023 1:58 PM RESPIRATORY THERAPIST COVID-19 Rule Out 10/11/2023 10/11/2023 10/11/2023 4:51 PM RESPIRATORY THERAPIST documented as of this encounter Care Teams Central Sterile Technician Relationship Specialty Start Date End Date Luis Beck MD PCP - General INTERNAL MEDICINE 03/22/16 10/10/23 Eugenie Wolfe PA [address] [place] [address] PCP - General PHYSICIAN DEPUTY SHERIFF BAILIFF 10/11/23 Silvia Gardner MD [facility] [address] [place] [address] [place] Key Bed Installer CARDIOVASCULAR DISEASE 03/22/16 documented as of this encounter
--- OUTSIDE RECORDS SUMMARY | 2025-08-19 02:03 | XMS_ITS | Encounter Summary ---
Author Organization [facility] Address [address] [place] [address] Care Team Providers Care Cutter Operator Brick Name Role Phone Silvia Gardner MD Unavailable [phone] Eugenie Wolfe Primary Care Provider [phone] Reason for Visit * Reason Onset Date Comments Surgical Clearance 08/18/2025 Encounter Details Date Type Department Care Team (Late st Contact Info) Description 08/18/2025 Telephone [facility] [place], [facility] [address] [place], [place] [id number] Silvia Gardner MD [facility]. 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 Myranda Rodriguez [facility] Parts Cataloger (Selected Message) 08/18/25 4:01 PM He is an acceptable risk for the procedure from a cardiac standpoint. Ok to hold asa 7-10 days prior Clearance faxed to [phone] * Brittany Wray RN - 08/18/2025 2:21 PM CDT Called and spoke to pt, pt has no c/o, says is doing well, denies CP, denies SOB, no cardiac c/o. Elke Wray R.N. * Constance Marroquin - 08/18/2025 12:08 PM CDT Received fax from [facility] requesting cardiac clearance prior to Left Knee Arthroscopy on 08/19/25 Also requesting direction with medications Message to BALBIR to advise Fax to [phone] documented in this encounter Plan of Treatment Upcoming Encounters Date Type Department Care Team (Late st Contact Info) Description 08/26/2025 11:30 AM ABRADING MACHINE TENDER Office Visit [facility], [place] [address] [place] [address] Silvia Gardner MD [facility]. [address] [place], [place] [address] documented as of this encounter Visit Diagnoses Not on filedocumented in this encounter Care Teams Cutter Operator Brick Relationship Specialty Start Date End Date Eugenie Wolfe PA [address] [place] [address] PCP - General PHYSICIAN RECEPTIONIST DOCTOR'S OFFICE 10/11/23 Silvia Gardner MD [address] [place] [address] [place] Commercial Makeup Artist CARDIOVASCULAR DISEASE 03/22/16 documented as of this encounter
[2025-08-20] VITALS (10 sets, daily range): BP systolic 98–116; BP diastolic 63–74; PULSE 63–79; RESP 11–16; TEMP 36.6–37.4; O2SAT 96–100
--- OUTSIDE RECORDS SUMMARY | 2025-08-20 02:15 | XMS_ITS | Encounter Summary ---
Author Organization [facility] Address [address] [place] [address] Care Team Providers Care Hedis Specialist Name Role Phone Luis Beck MD Primary Care Provider [phone] Silvia Gardner MD Unavailable [phone] Eugenie Wolfe Primary Care Provider [phone] Encounter Details Date Type Department Care Team (Late Contact Info) Description 11/15/2016 Abstract [facility] AT [address] [address] Jose Jean MA Social History Tobacco Use Types Packs/Day Years Used Date Smoking Tobacco: Never Alcohol Use Standard Drinks/Week Comments Yes 0 (1 standard drink = 0.6 oz pur e alcohol) Occasionally Sex and Gender Information Value Date Recorded Sex Assigned at Male 11/26/2024 11:56 AM BROADCAST MAINTENANCE ENGINEER Legal Sex Male 11:06 PM CDT Gender Identity Not on file Sexual Orientation Not on file 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 [address] [place], [place] [address] Silvia Gardner MD [facility]. [place] [address] [place], [place] [address] documented as of this encounter Procedures Procedure Name Priority Date/Time Associated Diagnosis Comments PROTIME (OUTSIDE LAB) Routine 04/30/2017 PROTIME (OUTSIDE LAB) Routine 11/15/2016 documented in this encounter Results * PROTIME (OUTSIDE LAB) (04/30/2017) PROTIME 21.6 INR 2.0 04/30/2017 [facility] Abstract LAB-OUTSIDE/ABSTRACTED Final Result * PROTIME (OUTSIDE LAB) (11/15/2016) PROTIME 17.7 INR 1.5 11/15/2016 [facility] Doc [facility] Abstract LAB-OUTSIDE/ABSTRACTED Final Result documented in this encounter Visit Diagnoses Not on filedocumented in this encounter Additional Health Concerns Infection Onset Date Last Indicated Resolved Time COVID-19 Rule Out 10/11/2023 10/11/2023 10/11/2023 1:58 PM BROADCAST MAINTENANCE ENGINEER COVID-19 Rule Out 10/11/2023 10/11/2023 10/11/2023 4:51 PM BROADCAST MAINTENANCE ENGINEER documented as of this encounter Care Teams Hedis Specialist Relationship Specialty Start Date End Date Luis Beck MD PCP - General INTERNAL MEDICINE 03/22/16 10/10/23 Eugenie Wolfe PA [address] [place] [address] PCP - General PHYSICIAN DIRECTOR FOOD AND BEVERAGE 10/11/23 Silvia Gardner MD [facility] [address] [place] [address] Renetta Dinkey Locomotive Operator CARDIOVASCULAR DISEASE 03/22/16 documented as of this encounter
--- OUTSIDE RECORDS SUMMARY | 2025-08-20 02:15 | XMS_ITS | Encounter Summary ---
Author Organization [facility] Address [address] [place] [address] Care Team Providers Care E Commerce Merchandising Coordinator Name Role Phone Luis Beck MD Primary Care Provider [phone] Silvia Gardner MD Unavailable [phone] Eugenie Wolfe Primary Care Provider [phone] Encounter Details Date Type Department Care Team (Late Contact Info) Description 06/29/2020 Abstract [facility] at [facility], [facility] [address] [place] [address] Jose Jean MA Social History Tobacco Use Types Packs/Day Years Used Date Smoking Tobacco: Never Smokeless Tobacco: Never Alcohol Use Standard Drinks/Week Comments Yes 0 (1 standard drink = 0.6 oz pur e alcohol) Occasionally Sex and Gender Information Value Date Recorded Sex Assigned at Male 11/26/2024 11:56 AM MOUTHPIECE MAKER Legal Sex Male 11:06 PM CDT Gender Identity Not on file Sexual Orientation Not on file 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 [facility] [address] [place], [place] [address] documented as of this encounter Procedures Procedure [...] BILIRUBIN TOTAL S/P/B 1.2 GLOBULIN 2.0 02/05/2025 [facility] History Genericprovider LAB-OUTSIDE/ABST RACTED Final Result * COMPREHENSIVE METABOLIC PANEL (03/19/2024) SODIUM S/P/B 135 GLUCOSE 93 mg/dL BUN 17 CREATININE S/P/B 0.80 0.7 - 1.3 CALCIUM S/P/B 9.4 POTASSIUM S/P/B 4.6 CHLORIDE S/P/B 102 GFR ESTIMATE 99 Default History Genericprovider LABORATORY Edited Result - Final * CBC, MANUAL DIFF (03/19/2024) Pathologist [facility] WBC 6.1 HGB 13.9 HCT 41.6 PLT [...] GFR ESTIMATE >60 Narrative Resulting Agency Comment [facility] History Genericprovider LABORATORY Edited Result - Final * CBC, MANUAL DIFF (08/24/2022) WBC 6.6 HGB 14.5 HCT 42.2 PLT 167 Narrative Resulting Agency Comment [facility] History Genericprovider LABORATORY Edited Result - Final [...] HDL CHOLESTEROL 53 LDL (CALCULATED) 40 04/06/2022 [facility] Abstract LABORATORY Final Result * (ABNORMAL) BASIC METABOLIC PANEL (12/28/2020) SODIUM S/P/B 138 POTASSIUM S/P/B 4.7 CO2 29 CHLORIDE S/P/B 103 GLUCOSE 95 mg/dL CALCIUM S/P/B 10.0 BUN 16 CREATININE S/P/B 0.89 0.7 - 1.3 EGFR AFR. AMER. 108(A) <=90 EGFR NON-AFR. AMER. 94(A) <=90 12/28/2020 [facility] Abstract LABORATORY Final Result * LIPID PANEL (12/28/2020) CHOLESTEROL 134 HDL 52 TRIGLYCERIDES 61 NON HDL CHOLESTEROL 82 LDL (CALCULATED) 68 12/28/2020 [facility] Abstract LABORATORY Edited Resul t - Final * (ABNORMAL) BASIC METABOLIC PANEL (07/28/2020) SODIUM S/P/B 134 POTASSIUM S/P/B 4.4 CO2 25 CHLORIDE S/P/B 101 GLUCOSE 85 mg/dL CALCIUM S/P/B 9.4 BUN 16 CREATININE S/P/B 0.88 0.7 - 1.3 EGFR AFR. AMER. 109(A) <=90 EGFR NON-AFR. AMER. 94(A) <=90 07/28/2020 [facility] Abstract LABORATORY Final Result * (ABNORMAL) [...] Rule Out 10/11/2023 10/11/2023 10/11/2023 1:58 PM MOUTHPIECE MAKER COVID-19 Rule Out 10/11/2023 10/11/2023 10/11/2023 4:51 PM MOUTHPIECE MAKER documented as of this encounter Care Teams E Commerce Merchandising Coordinator Relationship Specialty Start Date End Date Luis Beck MD PCP - General INTERNAL MEDICINE 03/22/16 10/10/23 Eugenie Wolfe PA [address] [place] [address] PCP - General PHYSICIAN HYDRAULIC MECHANIC 10/11/23 Silvia Gardner MD [address] [place] [address] [place] Food Storeroom Clerk CARDIOVASCULAR DISEASE 03/22/16 documented as of this encounter
--- OUTSIDE RECORDS SUMMARY | 2025-08-20 02:15 | XMS_ITS | Clinical Summary ---
Author Organization [facility] Address [facility] [place] [address] Care Team Providers Care Railroad Shop Inspector Name Role Phone Silvia Gardner MD Unavailable [phone] Eugenie Wolfe Primary Care Provider [phone] Allergies No known active allergies Medications aspirin [...] I 11/10/2016 Coronary artery disease invo lving [place] coronary artery of [place] heart without angina pectoris Ischemic cardiomyopathy Pure hypercholesterolemia Encounters Date Type Department Care Team Description 08/18/2025 Telephone [facility], [address] [address] Silvia Gardner MD Surgical Clearance 07/22/2025 Telephone [facility], [address] [address] Silvia Gardner MD Medication (LISINOPRIL) 07/17/2025 Telephone [facility], [address] [place] [address] Myranda Rodriguez PA-C Information ([facility]) 07/14/2025 Orders Only [facility], [place] [address] [address] [place], [place] [address] Brittany Wray RN 07/14/[address] [address] Brittany Wray RN Concerns 07/13/2025 8:40 AM CDT - 07/13/2025 11:59 PM CDT Hospital Encounter [facility] [place] [address] [place] [address] Karla Arreguin MD Discharge Disposition: Home or Self Care (Routine Discharge) 07/13/[address] [address] Scanned, Doc Pccl 07/13/2025 Travel 06/03/2025 4:10 AM CDT - 06/03/2025 6:06 AM CDT Emergency [facility] [place] [address] Valentino Junior MD Knee Pain Discharge Disposition: Home or Self Care (Routine Discharge) 06/03/2025 Telephone [facility] Medical [facility] Orthopedic & Sports Medicine - [address] [address] Elías Mckinnon MD Appointment Request 06/03/2025 Travel 05/28/2025 9:45 AM CDT - 05/28/2025 11:59 PM CDT Hospital Encounter [facility] [address] [place] [address] Lindy Martínez, [facility] Discharge Disposition: Home or Self Care (Routine [...] Sex Assigned at Male 11/26/2024 11:56 AM ENVIRONMENTAL SERVICE AIDE Legal Sex Male 11:06 PM CDT Gender Identity Not on file Sexual Orientation Not on file 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 [facility] [address] [place] [address] Health Maintenance Due Date Last Done Comments Colorectal Cancer Screening Colonoscopy (10 Years) 1961 Annual Physical 01/20/1964 Hepatitis C 1979 Pneumococcal Vaccine: 50+ Years (1 of 2 - PCV) 01/20/1980 Zoster Vaccines (1 of 2) 2011 RSV Immunization or 60+ Years (1 - Risk 60-74 years 1-dose series) 2021 PHQ-2 (Physician Logan) 10/22/2024 10/11/2023 COVID-19 Vaccine (4 - 2024-2 [...] 10:25 AM Narrative 07/15/2025 10:50 AM CDT [facility] [address] [facility] [place] [address] 07/13/2025, 9:18 AM. HISTORY: Chondromalacia. Medial, lateral [...] Procedure Note Filipe Perez MD - 07/15/2025 [facility] [address] [facility] [place] [address] 07/13/2025, 9:18 AM. HISTORY: Chondromalacia. Medial, lateral [...] Pccl Scanned SCANNING Final Result [facility] ONBASE * XR KNEE RT 3V (05/28/2025 10:05 AM CDT) Anatomical Region Laterality Modality Knee Radiographic Altagracia ging 05/28/2025 10:3 9 AM CDT Impressions 05/28/2025 2:51 PM CDT IMPRESSION: 1. No acute osseous or articular abnormalities. 2. Minimal degenerative arthropathy noted. 3. Mild joint effusion Dictated By: Jeanette Domínguez MD on 05/28/2025 10:39 AM Referred By: LIDNY MARTÍNEZ Interpreted By: Jeanette Domínguez MD, 05/28/2025 10:39 AM Narrative 05/28/2025 2:51 PM CDT [facility] [address] [place] [address] [facility] [address] [place] [address] XR KNEE RT 3V: 05/28/2025 9:51 AM CLINICAL INDICATION: Medial knee pain for 2 weeks COMPARISON: None TECHNIQUE: AP, lateral, oblique views of the right knee FINDINGS: No fracture or dislocation is identified. Mild joint effusion. The tibial plateau is intact. Osteophyte production on the medial side of the tibia, patella and femur. Procedure Note Ant Presley MD - 05/28/2025 [facility] [address] [place] [address] [facility] [address] [place] [address] XR KNEE RT 3V: 05/28/2025 9:51 AM [...] 3. Mild joint effusion Dictated By: Jeanette Domígnuez MD on 05/28/2025 10:39 AM Referred By: LINDY MARTÍNEZ Interpreted By: Jeanette Domínguez MD, 05/28/2025 10:39 AM Lindy Martínez GRINDER OUTSIDE DIAMETER-BC GENERAL IMAGING Final Re sult from Last 3 Months Insurance [facility] [place] [id number] Care Teams Railroad Shop Inspector Relationship Specialty Start Date End Date Eugenie Wolfe PA [address] [place] [address] PCP - General PHYSICIAN STRUCTURAL MILL SUPERVISOR 10/11/23 Silvia Gardner MD [facility] [address] [place] [address] Keeler Stringed Instrument Assembler CARDIOVASCULAR DISEASE 03/22/16
--- OUTSIDE RECORDS SUMMARY | 2025-08-20 02:15 | XMS_ITS | Clinical Summary ---
Author Organization [facility] Address [address] [place] [address] Care Team Providers Care Medical Office Professional Instructor Name Role Phone Luis Beck MD Primary Care Provider [phone] Source Comments [facility],non-owned Affiliates and Associated Physician Practices is amultiple site organization consisting of ambulatory clinics and hospital sitesin [place], [place], [place] and [place]. This disclosure is being madepursuant to the Care Everywhere program and may not contain all information available regarding this patient. 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[employer] Gender Identity Not on file Sexual Orientation Not on file Last Filed Vital Signs Vital Sign Reading Time Taken Comments Blood Pressure 110/77 07/13/2025 6:00 PM CDT Pulse 58 07/13/2025 6:00 PM CDT Temperature 36.4 C (97.6 F) 07/13/2025 12:39 PM CDT Respiratory Rate 16 07/13/2025 6:00 PM CDT Oxygen Saturation 100% 07/13/2025 6:00 PM CDT Inhaled Oxygen Concentration - - Weight 79.4 kg (175 lb) 07/13/2025 12:39 PM CDT Height 180.3 cm (5' 11) 07/13/2025 12:39 PM CDT Body Mass Index 24.41 07/13/2025 12:39 PM CDT Plan of Treatment Health Maintenance Due Date Last Done Comments COLOGUARD (AGES 45-75) - COL ON CA SCREENING 1961 COLON MONITORING 1961 COLONOSCOPY - COLON CA SCREENING 1961 CT COLONOGRAPHY - COLON CA SCREENING 1961 Colorectal Cancer Screening 1961 FIT - COLON CA SCREENING 1961 FLEX SIG - COLON CA SCREENING 1961 LIPID TESTING 1961 HIV SCREENING 01/20/1976 HEPATITIS C SCREENING 01/15/1979 DTAP/TDAP/TD VACCINES (1 - Tdap) 01/20/1980 PNEUMOCOCCAL VACCINE 50+ (1 of 1 - PCV) 2011 ZOSTER VACCINE (1 of 2) 2011 DEPRESSION SCREENING 10/22/2024 COVID-19 VACCINE (4 - 2024-2 6 season) 2025 11/02/2021, 01/21/2021, 12/31/2020 INFLUENZA VACCINE (#1) 2025 2, 06/29/2020 Respiratory Syncytial Virus (RSV) Vaccine Pt: or over 60 yrs (1 - 1-dose 75+ series) 01/20/2036 HEPATITIS B VACCINE Aged Out No longe r eligible based on patient's age to complete this topic HIB VACCINE Aged Out No longer eligi ble based on patient's age to complete this topic HPV VACCINE Aged Out No longer eligi ble based on patient's age to complete this topic MENINGOCOCCAL (Group B) VACCINE SHARED DECISION-MAKING Aged Out No longer eligible based on patient's age to complete this topic MENINGOCOCCAL GROUPS A/C/Y/W VACCINE Aged Out No longer eligible b ased on patient's age to complete this topic Procedures Procedure Name Priority Date/Time Associated Diagnosis Comments CARDIAC EKG ORDER 07/14/2025 11: 43 AM CDT TROPONIN-I HIGH SENSITIVE REFLEX 1HOUR Timed 07/13/2025 4:04 PM CDT XR CHEST 2VW STAT 07/13/2025 2:39 PM CDT Loss of consciousness CT CERVICAL SPINE WO CONTRAST STAT 07/13/2025 1:59 PM CDT Loss of consciousness CT HEAD WO CONTRAST STAT 07/13/2025 1 :59 PM CDT Loss of consciousness EKG 12-LEAD STAT 07/13/2025 1:17 PM CDT Loss of consciousness TROPONIN-I HIGH SENSITIVE BASELINE + 1HR STAT 07/13/2025 1:05 PM CDT MAGNESIUM BLOOD STAT 07/13/2025 1:05 PM CDT COMPREHENSIVE METABOLIC PANEL STAT 07/13/2025 1:05 PM CDT CBC W AUTO DIFFERENTIAL STAT 07/13/2025 1:05 PM CDT from Last 3 Months Results * CARDIAC EKG ORDER (07/14/2025 11:43 AM CDT) Narrative 07/14/2025 11:43 AM CDT Ordered by an unspecified provider. us Scanned Document CARDIAC SERVICES ORDERABLES Fin al Result * TROPONIN-I HIGH SENSITIVE REFLEX 1HOUR (07/13/2025 4:04 PM CDT) Troponin I High Sensitive <3 <=35 ng/L 07/13/2025 4:43 PM CDT [facility] Delta Troponin I HS 07/13/2025 4:43 PM CDT [facility] Comment:Delta value intentio umer not calculated. Baseline to 1 hour specimen collection interval exceeded. Blood BLOOD SPECIMEN / Unknown Venipuncture / Unknown 07/13/2025 4:04 PM CDT 07/13/2025 4:09 PM CDT us Rena Britton PA-C LAB - CHEMISTRY ORDERABLES Lu l Result [facility] [address] [address], [facility] [phone] * XR CHEST 2VW (07/13/2025 2:39 PM CDT) Anatomical Region Laterality Modality Chest Digital Radiogra phy 07/13/2025 2:49 PM CDT Impressions 07/13/2025 3:06 PM CDT IMPRESSION: 1. Normal lung volumes with adequate aeration and no evidence of consolidation, pleural effusion, or pneumothorax 2. No acute osseous abnormality The report is dictated by Jason Whitney MD, (radiology technologist) 07/13/2025 2:53 PM. > Dictated by Head Batcher I, Dinah Byrd MD have personally reviewed and interpreted this examination/study. > Interpreting Provider: Dinah Byrd MD on 07/13/2025 3:06 PM Narrative 07/13/2025 3:06 PM CDT PROCEDURE: XR CHEST 2VW, DATE/TIME OF EXAM: 07/13/2025 2:42 PM, LOCATION [facility] INDICATION: R55: Loss of consciousness ADDITIONAL CLINICAL INFORMATION: Ordering Provider Reason For Exam: r/o rib fx, pneumo, cardiomegaly, effusion Additional: PA and lateral chest radiographs COMPARISON: No prior comparison. FINDINGS: Normal lung volumes bilaterally. The cardiomediastinal silhouette is normal. Coronary artery stent in place. Normal pulmonary vasculature. No evidence of mediastinal widening. There is no focal consolidation, pleural effusion, or pneumothorax. No acute osseous abnormality. Procedure Note Dinah Byrd MD - 07/13/2025 PROCEDURE: XR CHEST 2VW, DATE/TIME OF EXAM: 07/13/2025 2:42 PM, LOCATION [facility] INDICATION: R55: Loss of consciousness ADDITIONAL CLINICAL INFORMATION: Ordering Provider Reason For Exam: r/o rib fx, pneumo, cardiomegaly, effusion Additional: PA and lateral chest radiographs COMPARISON: No prior comparison. FINDINGS: Normal lung volumes bilaterally. The cardiomediastinal silhouette is normal. Coronary artery stent in place. Normal pulmonary vasculature. No evidence of mediastinal widening. There is no focal consolidation, pleural effusion, or pneumothorax. No acute osseous abnormality. IMPRESSION: 1. Normal lung volumes with adequate aeration and no evidence of consolidation, pleural effusion, or pneumothorax 2. No acute osseous abnormality The report is dictated by Jason Whitney MD, (radiology technologist)07/13/2025 2:53 PM. > Dictated by Head Batcher I, Dinah Byrd MD have personally reviewed and interpreted this examination/study. > Interpreting Provider: Dinah Byrd MD on 07/13/2025 3:06 PM Rena Britton PA-C DIAGNOSTIC IMAGING ORDERABLES F inal Result * CT CERVICAL SPINE WO CONTRAST (07/13/2025 1:59 PM CDT) Anatomical Region Laterality Modality Spine Computed Tomogra phy 07/13/2025 2:03 PM CDT Impressions 07/13/2025 2:32 PM CDT IMPRESSION: 1.No acute intracranial process. 2.No evidence of acute fracture in the cervical spine. 3.Multiple chronic findings as detailed in the report. The report was drafted by Thom Moore MD (fixed income trading vice president) 07/13/2025 2:04 PM. > Dictated by Thom Moore MD 07/13/2025 2:03 PM > Dictated by Head Batcher I, Nabor Buckner MD have personally reviewed and interpreted this examination/study. > Interpreting Provider: Nabor Buckner MD on 07/13/2025 2:32 PM Narrative 07/13/2025 2:32 PM CDT PROCEDURE: CT HEAD WO CONTRAST, CT CERVICAL SPINE WO CONTRAST, DATE/TIME OF EXAM: 07/13/2025 2:01 PM, LOCATION [facility] INDICATION: R55: Loss of consciousness ADDITIONAL CLINICAL INFORMATION: Ordering Provider Reason For Exam: r/o bleed (accession [id number]), r/o fx (accession [id number]) COMPARISON: None. TECHNIQUE: CT of the head and cervical spine was performed without contrast according to standard protocol. FINDINGS: Head: No acute intra- or extra-axial fluid collections are identified. There is mild cerebral volume loss with associated ex vacuo ventricular dilatation. The basilar cisterns are patent. No mass effect or midline shift is seen. The nunn-white matter differentiation is normal. Periventricular white matter hypoattenuation is indicative of chronic small vessel ischemic disease. There is faint vascular calcification of the carotid siphons. No acute calvarial fracture is identified. The orbits appear normal. The paranasal sinuses are clear. The mastoid air cells are clear. No soft tissue abnormality is identified. Cervical spine: The cervical spine is straightened which could be positional. Grade 1 anterolisthesis of C2 on C3, C4 and C5. Grade 1 retrolisthesis of C6 on C7. No traumatic malalignment. Vertebral bodies are normal in height without evidence of acute fracture. Other than middle atlantoaxial joint osteoarthritis, the craniocervical junction appears normal. There is advanced degenerative disc disease at C6-7, otherwise mild multilevel degenerative disc disease. Moderate central canal stenosis at C5-6 and C6-7 due to disc protrusion and congenitally short pedicles. There are varying degrees of advanced facet osteoarthritis. There are varying degrees of mild to moderate multilevel uncovertebral joint osteoarthritis with the same degree of neural foraminal stenosis at these levels. There is mild scarring in the lung apices. Procedure Note Nabor Buckner MD - 07/13/2025 PROCEDURE: CT HEAD WO CONTRAST, CT CERVICAL SPINE WO CONTRAST,DATE/TIME OF EXAM: 07/13/2025 2:01 PM, LOCATION [facility] INDICATION: R55: Loss of consciousness ADDITIONAL CLINICAL INFORMATION: Ordering Provider Reason For Exam: r/o bleed (accession [id number]), r/ofx (accession [id number]) COMPARISON: None. TECHNIQUE: CT of the head and cervical spine was performed withoutcontrast according to standard protocol. FINDINGS: Head: No acute intra- or extra-axial fluid collections are identified. Thereis mild cerebral volume loss with associated ex vacuo ventriculardilatation. The basilar cisterns are patent. No mass effect or midline shift isseen. The nunn-white matter differentiation is normal. Periventricular white matter hypoattenuation is indicative of chronic small vessel ischemic disease. There is faint vascular calcification of the carotid siphons.No acute calvarial fracture is identified. The orbits appear normal. The paranasal sinuses are clear. The mastoid air cells are clear. No soft tissue abnormality is identified. Cervical spine: The cervical spine is straightened which could be positional. Grade 1 anterolisthesis of C2 on C3, C4 and C5. Grade 1 retrolisthesis of C6 onC7. No traumatic malalignment. Vertebral bodies are normal in height without evidence of acute fracture. Other than middle atlantoaxial joint osteoarthritis, the craniocervical junction appears normal. There is advanced degenerative disc disease at C6-7, otherwise mild multilevel degenerative disc disease. Moderate central canal stenosis at C5-6 andC6-7 due to disc protrusion and congenitally short pedicles. There arevarying degrees of advanced facet osteoarthritis. There are varying degrees ofmild to moderate multilevel uncovertebral joint osteoarthritis with the same degree of neural foraminal stenosis at these levels. There is mildscarring in the lung apices. IMPRESSION: 1.No acute intracranial process. 2.No evidence of acute fracture in the cervical spine. 3.Multiple chronic findings as detailed in the report. The report was drafted by Thom Moore MD (fixed income trading vice president) 07/13/2025 2:04 PM. > Dictated by Thom Moore MD 07/13/2025 2:03 PM > Dictated by Head Batcher I, Nabor Buckner MD have personally reviewed and interpreted this examination/study. > Interpreting Provider: Nabor Buckner MD on 07/13/2025 2:32 PM Rena Britton PA-C CT ORDERABLES Final Result * CT HEAD WO CONTRAST (07/13/2025 1:59 PM CDT) Anatomical Region Laterality Modality Head Computed Tomogra phy 07/13/2025 2:03 PM CDT Impressions 07/13/2025 2:32 PM CDT IMPRESSION: 1.No acute intracranial process. 2.No evidence of acute fracture in the cervical spine. 3.Multiple chronic findings as detailed in the report. The report was drafted by Thom Moore MD (fixed income trading vice president) 07/13/2025 2:04 PM. > Dictated by Thom Moore MD 07/13/2025 2:03 PM > Dictated by Head Batcher I, Nabor Buckner MD have personally reviewed and interpreted this examination/study. > Interpreting Provider: Nabor Buckner MD on 07/13/2025 2:32 PM Narrative 07/13/2025 2:32 PM CDT PROCEDURE: CT HEAD WO CONTRAST, CT CERVICAL SPINE WO CONTRAST, DATE/TIME OF EXAM: 07/13/2025 2:01 PM, LOCATION [facility] INDICATION: R55: Loss of consciousness ADDITIONAL CLINICAL INFORMATION: Ordering Provider Reason For Exam: r/o bleed (accession [id number]), r/o fx (accession [id number]) COMPARISON: None. TECHNIQUE: CT of the head and cervical spine was performed without contrast according to standard protocol. FINDINGS: Head: No acute intra- or extra-axial fluid collections are identified. There is mild cerebral volume loss with associated ex vacuo ventricular dilatation. The basilar cisterns are patent. No mass effect or midline shift is seen. The nunn-white matter differentiation is normal. Periventricular white matter hypoattenuation is indicative of chronic small vessel ischemic disease. There is faint vascular calcification of the carotid siphons. No acute calvarial fracture is identified. The orbits appear normal. The paranasal sinuses are clear. The mastoid air cells are clear. No soft tissue abnormality is identified. Cervical spine: The cervical spine is straightened which could be positional. Grade 1 anterolisthesis of C2 on C3, C4 and C5. Grade 1 retrolisthesis of C6 on C7. No traumatic malalignment. Vertebral bodies are normal in height without evidence of acute fracture. Other than middle atlantoaxial joint osteoarthritis, the craniocervical junction appears normal. There is advanced degenerative disc disease at C6-7, otherwise mild multilevel degenerative disc disease. Moderate central canal stenosis at C5-6 and C6-7 due to disc protrusion and congenitally short pedicles. There are varying degrees of advanced facet osteoarthritis. There are varying degrees of mild to moderate multilevel uncovertebral joint osteoarthritis with the same degree of neural foraminal stenosis at these levels. There is mild scarring in the lung apices. Procedure Note Nabor Buckner MD - 07/13/2025 PROCEDURE: CT HEAD WO CONTRAST, CT CERVICAL SPINE WO CONTRAST,DATE/TIME OF EXAM: 07/13/2025 2:01 PM, LOCATION [facility] INDICATION: R55: Loss of consciousness ADDITIONAL CLINICAL INFORMATION: Ordering Provider Reason For Exam: r/o bleed (accession [id number]), r/ofx (accession [id number]) COMPARISON: None. TECHNIQUE: CT of the head and cervical spine was performed withoutcontrast according to standard protocol. FINDINGS: Head: No acute intra- or extra-axial fluid collections are identified. Thereis mild cerebral volume loss with associated ex vacuo ventriculardilatation. The basilar cisterns are patent. No mass effect or midline shift isseen. The nunn-white matter differentiation is normal. Periventricular white matter hypoattenuation is indicative of chronic small vessel ischemic disease. There is faint vascular calcification of the carotid siphons.No acute calvarial fracture is identified. The orbits appear normal. The paranasal sinuses are clear. The mastoid air cells are clear. No soft tissue abnormality is identified. Cervical spine: The cervical spine is straightened which could be positional. Grade 1 anterolisthesis of C2 on C3, C4 and C5. Grade 1 retrolisthesis of C6 onC7. No traumatic malalignment. Vertebral bodies are normal in height without evidence of acute fracture. Other than middle atlantoaxial joint osteoarthritis, the craniocervical junction appears normal. There is advanced degenerative disc disease at C6-7, otherwise mild multilevel degenerative disc disease. Moderate central canal stenosis at C5-6 andC6-7 due to disc protrusion and congenitally short pedicles. There arevarying degrees of advanced facet osteoarthritis. There are varying degrees ofmild to moderate multilevel uncovertebral joint osteoarthritis with the same degree of neural foraminal stenosis at these levels. There is mildscarring in the lung apices. IMPRESSION: 1.No acute intracranial process. 2.No evidence of acute fracture in the cervical spine. 3.Multiple chronic findings as detailed in the report. The report was drafted by Thom Moore MD (fixed income trading vice president) 07/13/2025 2:04 PM. > Dictated by Thom Moore MD 07/13/2025 2:03 PM > Dictated by Head Batcher I, Nabor Buckner MD have personally reviewed and interpreted this examination/study. > Interpreting Provider: Nabor Buckner MD on 07/13/2025 2:32 PM Rena Britton PA-C CT ORDERABLES Final Result * EKG 12-LEAD (07/13/2025 1:17 PM CDT) Ventricular Rate 63 BPM [facility] Atrial Rate 63 BPM [facility] P-R Interval 148 ms [facility] QRS Duration ms 82 ms [facility] Q-T Interval ms 396 ms [facility] QTC Calculation (Bezet) 405 ms [facility] Calculated P [place] 44 degrees [facility] Calculated R [place] -15 degrees [facility] Calculated T [place] 71 degrees [facility] Interpretation EKG NORMAL SINUS RHYTHM INFERIOR INFARCT , AGE UNDETERMINED ANTEROSEPTAL INFARCT , AGE UNDETERMINED ABNORMAL ECG NO PREVIOUS ECGS AVAILABLE Confirmed by ELIZA BROWN MD ([id number]) on 07/14/2025 3:06:01 PM [facility] 07/13/2025 1:17 PM CDT 07/14/2025 3:06 PM CDT Rena Britton PA-C ECG ORDERABLES Edited Result - Final Performing Organization Address [facility]/ZIP Co de Phone Number [facility] * TROPONIN-I HIGH SENSITIVE BASELINE + 1HR (07/13/2025 1:05 PM CDT) [facility] Troponin I High Sensitive <3 <=35 ng/L 07/13/2025 1:57 PM CDT [facility] Blood BLOOD SPECIMEN / Unknown Venipuncture / Unknown 07/13/2025 1:05 PM CDT 07/13/2025 1:25 PM CDT Rena Britton PA-C LAB - CHEMISTRY ORDERABLES Lu l Result [facility] [address] [place] [address], [facility] [phone] * (ABNORMAL) CBC W AUTO DIFFERENTIAL (07/13/2025 1:05 PM CDT) [facility] WBC 13.6(H) 4.0 - 10.7 x10E9/L 07/13/2025 1:39 PM CDT [facility] RBC Count 4.05(L) 4.30 - 5.80 x10E12/L 07/13/2025 1:39 PM [facility] Hemoglobin 13.4 13.3 - 17.5 g/dL 07/13/2025 1:39 PM [facility] Hematocrit 38.9 38.7 - 51.1 % 07/13/2025 1:39 PM [facility] MCV 96.0 80.0 - 98.0 fL 07/13/2025 1:39 PM [facility] MCH 33.1 26.7 - 33.6 pg 07/13/2025 1:39 PM [facility] MCHC 34.4 31.7 - 36.3 g/dL 07/13/2025 1:39 PM [facility] RDW-CV 13.2 11.3 - 14.8 % 07/13/2025 1:39 PM [facility] Platelet Count 204 150 - 420 x10E9/L 07/13/2025 1:39 PM [facility] MPV 9.5 7.8 - 11.4 fL 07/13/2025 1:39 PM [facility] Neutrophil % 79.1(H) 41.0 - 74.0 % 07/13/2025 1:39 PM [facility] Lymphocyte % 10.1(L) 17.0 - 47.0 % 07/13/2025 1:39 PM [facility] Monocyte % 8.8 3.0 - 11.0 % 07/13/2025 1:39 PM [facility] Eosinophil % 1.0 0.0 - 7.0 % 07/13/2025 1:39 PM [facility] Basophil % 0.2 0.0 - 1.6 % 07/13/2025 1:39 PM [facility] Immature Granulocytes % 0.8 0.0 - 1.0 % 07/13/2025 1:39 PM [facility] Neutrophil Absolute 10.72(H) 1.60 - 7.50 x10E9/L 07/13/2025 1:39 PM [facility] Lymphocyte Absolute 1.37 1.00 - 4.40 x10E9/L 07/13/2025 1:39 PM [facility] Monocyte Absolute 1.19(H) 0.15 - 1.00 x10E9/L 07/13/2025 1:39 PM T [facility] Eosinophil Absolute 0.13 0.00 - 0.60 x10E9/L 07/13/2025 1:39 PM [facility] Basophil Absolute 0.03 0.00 - 0.13 x10E9/L 07/13/2025 1:39 PM [facility] Blood BLOOD SPECIMEN / Unknown Venipuncture / Unknown 07/13/2025 1:05 PM CDT 07/13/2025 1:24 PM CDT us Rena Britton PA-C LAB - HEMATOLOGY ORDERABLES Fin al Result [facility] [address] [place] [address], [facility] [phone] * (ABNORMAL) COMPREHENSIVE METABOLIC PANEL (07/13/2025 1:05 PM CDT) BUN 16 7 - 26 mg/dL 07/13/2025 1:53 PM [facility] Creatinine 0.79 0.71 - 1.16 mg/dL 07/13/2025 1:53 PM [facility] Sodium 132(L) 136 - 145 mmol/L 07/13/2025 1:53 PM [facility] Potassium 4.7(H) 3.5 - 4.5 mmol/L 07/13/2025 1:53 PM [facility] Chloride 98 98 - 107 mmol/L 07/13/2025 1:53 PM [facility] CO2 27 22 - 29 mmol/L 07/13/2025 1:53 PM [facility] Glucose 96 70 - 99 mg/dL 07/13/2025 1:53 PM [facility] Calcium 9.4 8.4 - 10.2 mg/dL 07/13/2025 1:53 PM [facility] Protein Total 6.6 6.0 - 8.3 g/dL 07/13/2025 1:53 PM [facility] Albumin 3.9 3.4 - 5.0 g/dL 07/13/2025 1:53 PM [facility] Bilirubin Total 0.5 0.2 - 1.2 mg/dL 07/13/2025 1:53 PM [facility] Alkaline Phosphatase 44 40 - 150 U/L 07/13/2025 1:53 PM [facility] ALT 35 5 - 55 U/L 07/13/2025 1:53 PM [facility] AST 26 5 - 34 U/L 07/13/2025 1:53 PM [facility] Anion Gap 7 6 - 16 07/13/2025 1:53 PM [facility] BUN/Creatinine Ratio 20 7 - 23 07/13/2025 1:53 PM [facility] Osmolality Calculated 275 275 - 295 mOsm/kg 07/13/2025 1:53 PM [facility] Albumin/Globulin Ratio 1.4 1.1 - 2.3 07/13/2025 1:53 PM [facility] eGFR by CKD-EPI >90 >=90 mL/min/1.7 3 m2 07/13/2025 1:53 PM [facility] Comment:Estimated Glomerular Filtration Rate (eGFR) calculated using the CKD-EPI Creatinine Equation (2020), per the National Kidney Foundation and [place] [employer] recommendations. Blood BLOOD SPECIMEN / Unknown Venipuncture / Unknown 07/13/2025 1:05 PM CDT 07/13/2025 1:25 PM CDT Rena Britton PA-C LAB - CHEMISTRY ORDERABLES Lu maldonado Result [facility] [address] [place] [address], [facility] [phone] * MAGNESIUM BLOOD (07/13/2025 1:05 PM CDT) Magnesium 1.8 1.6 - 2.6 mg/dL 07/13/2025 1:53 PM [facility] Blood BLOOD SPECIMEN / Unknown Venipuncture / Unknown 07/13/2025 1:05 PM CDT 07/13/2025 1:25 PM CDT us Rena Britton PA-C LAB - CHEMISTRY ORDERABLES Lu maldonado Result [facility] [address] [place] [address], [place] [phone] from Last 3 Months Insurance [facility] Care Teams Medical Office Professional Instructor Relationship Specialty Start Date End Date Luis Beck MD [address] [place] [address] PCP - General 11/01/21
--- OUTSIDE RECORDS SUMMARY | 2025-08-20 02:15 | XMS_ITS | Encounter Summary ---
Author Organization [facility] Address [address] [place] [id number] Care Team Providers Care Chair Car Driver Name Role Phone Luis Beck MD Primary Care Provider [phone] Silvia Gardner MD Unavailable [phone] Eugenie Wolfe Primary Care Provider [phone] Encounter Details Date Type Department Care Team (Late st Contact Info) Description 03/29/2019 Abstract [facility] [address] [place] [address] , Generic ConversionMD Social History Tobacco Use Types Packs/Day Years Used Date Smoking Tobacco: Never Smokeless Tobacco: Never Alcohol Use Standard Drinks/Week Comments Yes 0 (1 standard drink = 0.6 oz pur e alcohol) Occasionally Sex and Gender Information Value Date Recorded Sex Assigned at Male 11/26/2024 11:56 AM WOODWORKER Legal Sex Male 11:06 PM CDT Gender Identity Not on file Sexual Orientation Not on file Occupation Industry Job Start Date Job End Date [employer] Not on file Not on file Not on file documented as of this encounter Plan of Treatment Upcoming Encounters Date Type Department Care Team (Late st Contact Info) Description 08/26/2025 11:30 AM WOODWORKER Office Visit [facility], [address] [place], [place] [id number] Silvia Gardner MD [facility]. [address] [place], [place] [id number] documented as of this encounter Visit Diagnoses Not on filedocumented in this encounter Additional Health Concerns Infection Onset Date Last Indicated Resolved Time COVID-19 Rule Out 10/11/2023 10/11/2023 10/11/2023 1:58 PM WOODWORKER COVID-19 Rule Out 10/11/2023 10/11/2023 10/11/2023 4:51 PM WOODWORKER documented as of this encounter Care Teams Chair Car Driver Relationship Specialty Start Date End Date Luis Beck MD PCP - General INTERNAL MEDICINE 03/22/16 10/10/23 Eugenie Wolfe PA [address] [place] [id number] PCP - General PHYSICIAN DIETARY AIDE 10/11/23 Silvia Gardner MD [id number] [place] [address] [place] Gimp Tacker CARDIOVASCULAR DISEASE 03/22/16 documented as of this encounter
--- OUTSIDE RECORDS SUMMARY | 2025-08-20 02:15 | XMS_ITS | Encounter Summary ---
Author Organization [facility] Address [address] [place] [address] Care Team Providers Care Quilt Sewer Name Role Phone Luis Beck MD Primary Care Provider [phone] Silvia Gardner MD Unavailable [phone] Eugenie Wolfe Primary Care Provider [phone] Encounter Details Date Type Department Care Team (Late st Contact Info) Description 03/20/2019 Abstract [facility], [facility] [address] [place] [address] Jose Jean MA Social History Tobacco Use Types Packs/Day Years Used Date Smoking Tobacco: Never Smokeless Tobacco: Never Alcohol Use Standard Drinks/Week Comments Yes 0 (1 standard drink = 0.6 oz pur e alcohol) Occasionally Sex and Gender Information Value Date Recorded Sex Assigned at Male 11/26/2024 11:56 AM PIPEMAN Legal Sex Male 11:06 PM CDT Gender Identity Not on file Sexual Orientation Not on file 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 [address] [place] [address] documented as of this encounter Procedures Procedure [...] Result * PRO-BRAIN NATRIURETIC PEPTIDE (01/16/2019) Pathologist [facility] PRO-BRAIN NATRIURETIC PEPTIDE 166 01/16/2019 us Doc [facility] LABORATORY Final Result * CBC (OUTSIDE LAB) (01/16/2019) Pathologist [facility] WBC 6.8 HGB 14.6 HCT 43.3 PLT 157 01/16/2019 us Doc [facility] Abstract LAB-OUTSIDE/ABSTRACTED Edite d Result - Final * COMPREHENSIVE METABOLIC PANEL (01/16/2019) Pathologist [facility] SODIUM S/P/B 136 POTASSIUM S/P/B 4.4 CO2 [...] COVID-19 Rule Out 10/11/2023 10/11/202310/11/2023 1:58 PM PIPEMAN COVID-19 Rule Out 10/11/2023 10/11/2023 10/11/2023 4:51 PM PIPEMAN documented as of this encounter Care Teams Quilt Sewer Relationship Specialty Start Date End Date Luis Beck MD PCP - General INTERNAL MEDICINE 03/22/16 10/10/23 Eugenie Wolfe PA [address] [place] [id number] PCP - General 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
[2025-08-20] MEDS: ACETAMINOPHEN 500 MG TABLET 1000 MG PO (11:46)
[2025-08-20] MEDS: KETOROLAC 15 MG/ML VIAL (*BKC) IV PUSH (11:46)
--- NOTE | 2025-08-20 12:21 | WPDANESEPPF ---
Anes - Initial Pre Proc Eval Procedure: Operation Date: 08/20/25 13:00 Proposed Procedures p Right Knee Arthroscopy Partial Meniscectomy, Proceed As Indicated - Tobias Arreguin MD Date/Time: 08/20/25 12:21 Surgeon: Tobias Arreguin MD Pre Op Diagnosis: Rt Medal & Lateral Meniscal Tear Patient Data Age: 65 Gender: M Height: 1.82 m Weight: 82.6 kg Last Vital Signs Temp 99.3 F 08/20/25 11:47 Pulse 79 08/20/25 11:47 Resp 16 08/20/25 11:47 BP 113/74 08/20/25 11:47 Pulse Ox 100 08/20/25 11:47 O2 Del Method Room Air 08/20/25 11:47 Allergies Allergy/AdvReac Type Severity Reaction Status Date / Time No Known Allergies Allergy Verified 08/19/25 16:44 Home Medications ?Medication ?Instructions ?Recorded ?Confirmed ?Type aspirin 81 mg tablet,delayed 81 mg PO DAILY 06/20/23 08/20/25 History release (Adult Aspirin Regimen) carvedilol 12.5 mg tablet 12.5 mg PO Q12H 06/20/23 08/20/25 History ezetimibe 10 mg tablet 10 mg PO DAILY #90 tabs 06/20/23 08/20/25 Rx nitroglycerin 0.4 mg sublingual 0.4 mg sublingual Q5M PRN chest 04/01/24 08/10/25 Rx tablet pain #30 tabs naproxen 500 mg tablet (Naprosyn) 500 mg PO BID 08/10/25 08/10/25 History rosuvastatin 40 mg tablet 40 mg PO HS 08/10/25 08/20/25 History tadalafil 5 mg tablet 5 mg PO DAILY PRN sexual activity 08/10/25 08/10/25 History vitamin B complex 1 tablet PO DAILY 08/10/25 08/20/25 History cholecalciferol (vitamin D3) 25 50 mcg PO DAILY 08/11/25 08/20/25 History mcg (1,000 unit) tablet lisinopril 10 mg tablet 5 mg PO BID 08/11/25 08/20/25 History Patient hx anesthesia problems: none Family hx anesthesia problems: none Results Review: All pre-operative results and documents have been reviewed as part of the pre-operative evaluation. 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[place] (actinic keratosis) Surgical History Surgical History History of right knee surgery History of heart surgery History of prostatectomy Family History Family History Mother Pancreatic cancer Hypertension Father Hypertension Heart disease Sibling Cerebrovascular accident Hypertension Social History Social History Smoking status: Never smoker Alcohol intake: current Drinks per week: 6 Substance use: never Substance use type: does not use Do You Feel Safe in your Home?: Yes Lack of Transportation: No Lack of Food: Never True Current Housing: I Have Housing Concerned About Future Housing: No Difficulty Paying Gas/Electric Bills: No Difficulty Paying for Meds: No Currently Unemployed: No Education: High School Diploma/GED Difficulty w/ Childcare or Family Care: No Living arrangements: with family Occupation/Education: occupation Additional occupation/education comments: [employer] Gender identity (if verbalized by the patient): Male Spiritual care concerns: No Anes - Eval Final PreProcedure Day of Procedure 08/20/25 12:21 Patient weight: normal Lungs: normal air movement Airway: Mallampati scale class II Neurological: alert and oriented Last oral intake: >/= 8 hours ASA classification: III Emergent: no Anesthetic plan: proceed Anesthesia type and monitoring: general LMA and standard monitoring Results Review: All pre-operative results and documents have been reviewed as part of the pre-operative evaluation. HTN, hyperlipidemia, s/p PTCA 2014 SKYE to LAD, w good results. Active, no cp or sob. Informed Consent: The patient's anesthetic plan and its attendant risks and benefits were discussed with the patient/family/POA. Questions were solicited and answers provided to the satisfaction of the patient/family/POA.
--- NOTE | 2025-08-20 12:24 | WPDHPUPDATE1 ---
History and Physical Update Update Date/Time: 08/20/25 12:24 History and Physical has been reviewed, including an updated exam of the patient. There are NO changes in the patient's condition. Risks, benefits, and alternatives have been discussed and questions answered. Patient agrees to proceed with procedure. Will proceed with arthroscopy, partial meniscectomy, proceed as indicated.
[2025-08-20] MEDS: ceFAZolin 2 GM in SODIUM CHLORIDE 0.9% IV 50 ML 100 ML IVPB (12:32)
[2025-08-20] MEDS: LIDO 1%/EPINEPHRINE 1:100,000 50 ML VIAL (12:57)
--- NOTE | 2025-08-20 13:12 | W.PM.PROC2 ---
Procedure Note - Detailed Date of Procedure 08/20/25 Pre-op Diagnosis RIGHT Medial & Lateral Meniscal Tear Post-op Diagnosis Same Procedure Performed Arthroscopy with partial medial meniscectomies right knee. Surgeon Tobias Arreguin MD Anesthesia General Indications Pain, Locking and Catching Description of Procedure Patient brought to operating room # 8. An anesthetic was administered. The knee was sterilely prepped and draped in the usual manner. Standard portals were used. Superior medial portal was used for the outflow cannula, inferior lateral portal was used for the scope, inferior medial portal was used for the instruments. Arthroscopy was performed, the patellar femoral joint degenerative changes. The medial compartment showed a complex tear. The lateral compartment showed a complex tear as well. The ACL was intact. Using baskets and arcelia the meniscal tears were trimmed back to a stable base so the nothing further could be pulled into the joint. Any loose or delaminated fragments were gently trimmed to a stable base. At this point the instruments were withdrawn, sutures placed and patient left the operating room in satisfactory condition. Estimated Blood Loss 20 Drains No Packing No Pathology None sent Complications No immediate complications Condition Stable Disposition PACU [facility] Billing Surgery - Charge Forward: Surgery Billing (16006 MMT LMT)
[2025-08-20] MEDS: LACTATED RINGERS 1,000 ML 30 ML IV CONT (13:19)
[2025-08-20] MEDS: fentaNYL CITRATE INJ (*CRX) 100 MCG/2 ML VIAL 25 MCG IV PUSH ×4 (14:01→14:35)
[2025-08-20] MEDS: oxyCODONE HCL (*CRX) 5 MG TAB IR PO (15:14)
== END 2025-08-20 15:45 | disposition home or self-care (01) ==
PROVIDERS: PCP Nurse Practitioner Family; Visit Provider Orthopaedic Surgery
PROC: (CPT 29870; principal; 2025-08-20 13:00)
DX: M23.331 Other meniscus derangements, other medial meniscus, right knee (principal); M23.361 Other meniscus derangements, other lateral meniscus, right knee
CPT/HCPCS: 29880; J0690; A9270; J1100; J1885; J2004; J2250; J2405; J2704; J3010; J7120